=== PATIENT | female | born 1985 | race Caucasian/White ===

== ENCOUNTER → 2017-01-21 | Outpatient (CLI) | payer OTHER ==
[2017-01-21 12:34] LABS: ALT 38 U/L (9-52); AST 27 U/L (14-36); Alkaline Phosphatase 69 U/L (38-126); Anion Gap 10 mmol/L; Blood Urea Nitrogen 14 mg/dL (7-17); C Reactive Protein <5.0 mg/L (<10.0); Calcium 9.3 mg/dL (8.4-10.2); Carbon Dioxide 24 mmol/L (22-30); Chloride 108 mmol/L (98-107); Glucose 73 mg/dL (74-99); Non-African American GFR(MDRD) >60 (>60 ml/min/1.73 sqM); Potassium 4.5 mmol/L (3.5-5.1); Sodium 142 mmol/L (137-145); Total Bilirubin 0.6 mg/dL (0.2-1.3); Total Protein 6.7 g/dL (6.3-8.2)
== END | disposition home or self-care (01) ==
LOC: LABWHC1 11:29
PROVIDERS: ATTEND Family Medicine
DX: E03.9 Hypothyroidism, unspecified (principal); E04.9 Nontoxic goiter, unspecified; R63.8 Other symptoms and signs concerning food and fluid intake
CPT/HCPCS: 36415; 80053; 84439; 84443; 84481; 85652; 86140

== ENCOUNTER 2017-01-30 07:57 | Emergency (ER) | payer OTHER ==
[2017-01-30] MEDS ORDERED: SODIUM CHLORIDE 0.9% 1,000 ML IV STA (08:25)
[2017-01-30 09:17] LABS: Basophils % (A) 0 %; CH 31.8; Eosinophils # (A) 0.3 k/uL (0-0.7); Eosinophils % (A) 4 %; HCT 40.2 % (34.0-46.0); HDW 2.31; HGB 14.2 gm/dL (11.4-16.0); Luc # (Auto) 0.11; Luc % (Auto) 2; Lymphocytes # (A) 1.3 k/uL (1.0-4.8); Lymphocytes % (A) 21 %; MCH 32.2 pg (25.0-35.0); MCHC 35.2 g/dL (31.0-37.0); MCV 91.4 fL (80.0-100.0); Mean Platelet Volume 6.9; Monocytes # (A) 0.3 k/uL (0-1.0); Monocytes % (A) 4 %; Neutrophils # (A) 4.2 k/uL (1.3-7.7); Neutrophils % (A) 68 %; RBC 4.39 m/uL (3.80-5.40); RDW 12.5 % (11.5-15.5); WBC 6.2 k/uL (3.8-10.6); WBC (Perox) 6.02
[2017-01-30 09:24] LABS: Partial Thromboplastin Time 24.6 sec (22.0-30.0); Prothrombin Time 10.2 sec (9.0-12.0)
--- NOTE | 2017-01-30 09:30 | XR ---
EXAMINATION TYPE: XR chest 2V DATE OF EXAM: 01/30/2017 COMPARISON: 02/03/2015 HISTORY: Chest pain TECHNIQUE: Frontal and lateral views of the chest are obtained. FINDINGS: There is no focal air space opacity. No evidence for pneumothorax. No pleural effusion. The cardiac silhouette size is within normal limits. The osseous structures are grossly intact. IMPRESSION: 1. No acute cardiopulmonary process.
--- NOTE | 2017-01-30 09:31 | XR ---
EXAMINATION TYPE: XR soft tissue neck DATE OF EXAM: 01/30/2017 COMPARISON: NONE HISTORY: PT STATES SHE HAS HAD DIFFICULTY BREATHING FOR 2 WEEKS AND LUMP FEELING IN THROAT. TECHNIQUE: 2 views of the soft tissues of the neck are submitted. FINDINGS: The airway is patent. Normal appearing epiglottis. Retropharyngeal soft tissues are withi n normal limits. No evidence for radiopaque foreign body. IMPRESSION: Negative study
[2017-01-30 09:32] LABS: ALT 31 U/L (9-52); AST 29 U/L (14-36); Alkaline Phosphatase 76 U/L (38-126); Anion Gap 7 mmol/L; Blood Urea Nitrogen 14 mg/dL (7-17); Calcium 8.7 mg/dL (8.4-10.2); Carbon Dioxide 23 mmol/L (22-30); Chloride 111 mmol/L (98-107); Glucose 97 mg/dL (74-99); Non-African American GFR(MDRD) >60 (>60 ml/min/1.73 sqM); Sodium 141 mmol/L (137-145); Total Bilirubin 0.4 mg/dL (0.2-1.3); Total Protein 6.5 g/dL (6.3-8.2)
--- NOTE | 2017-01-30 09:45 | ED ---
SOB HPI - General Chief Complaint: Shortness of Breath Stated Complaint: throat pain, diff breathing Time Seen by Provider: 01/30/17 08:09 Source: patient, RN notes reviewed, old records reviewed Mode of arrival: ambulatory Limitations: no limitations - History of Present Illness Initial Comments: 31-year-old female presents emergency Department chief complaint of intermittent throat pain and occasional shortness of breath for the past few months. Patient reports that she saw her primary care provider as she is concerned about making. They did a thyroid test and did an ultrasound. Patient was there was an abnormality on the ultrasound and they were told to follow-up with secondary special education teacher. Patient reports that she cannot see an secondary special education teacher for the next 3 months. Patient states that whenever she seems to lay down or sometimes swallow food there seems to be a compression and pain in her neck and throat. Patient denies any recent fever or chills. She denies any chest pain. She denies any cough or wheezing. She states that he feels as if there is some constriction in her neck. Patient states that she is up-to- date on vaccinations. 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 She states that there is no reason for her and this is unusual for her. - Related Data Home Medications Medication Instructions Recorded Confirmed No Known Home Medications [No 01/30/17 01/30/17 Known Home Medications] Allergies Allergy/AdvReac Type Severity Reaction Status Date / Time No Known Allergies Allergy Verified 01/30/17 08:23 Review of Systems ROS Statement: Those systems with pertinent positive or pertinent negative responses have been documented in the HPI. ROS Other: All systems not noted in ROS Statement are negative. Past Medical History Past Medical History: No Reported History Additional Past Medical History / Comment(s): migraines History of Any Multi-Drug Resistant Organisms: None Reported Past Surgical History: Orthopedic Surgery Additional Past Surgical History / Comment(s): knee surgery and laporoscopy for endometriosis Past Psychological History: No Psychological Hx Reported Smoking Status: Never smoker Past Alcohol Use History: None Reported Past Drug Use History: None Reported General Exam - General Exam Comments Initial Comments: 31-year-old female. No acute distress. Limitations: no limitations General appearance: alert, in no apparent distress Head exam: Present: atraumatic, normocephalic, normal inspection Eye exam: Present: normal appearance, PERRL, EOMI. Absent: scleral icterus, conjunctival injection, periorbital swelling ENT exam: Present: normal exam, normal oropharynx, mucous membranes moist Neck exam: Present: normal inspection, thyromegaly (Possible mild thyromegaly. Patient reports irritation and fullness when swallowing in her throat and neck.) . Absent: tenderness, meningismus, lymphadenopathy Respiratory exam: Present: normal lung sounds bilaterally. Absent: respiratory distress, wheezes, rales, rhonchi, stridor Cardiovascular Exam: Present: regular rate, normal rhythm, normal heart sounds. Absent: systolic murmur, diastolic murmur, rubs, gallop, clicks GI/Abdominal exam: Present: soft, normal bowel sounds. Absent: distended, tenderness, guarding, rebound, rigid Extremities exam: Present: normal inspection, full ROM, normal capillary refill. Absent: tenderness, pedal edema, joint swelling, calf tenderness Back exam: Present: normal inspection Neurological exam: Present: alert, oriented X3, CN II-XII intact Psychiatric exam: Present: normal affect, normal mood Skin exam: Present: warm, dry, intact, normal color. Absent: rash Course Vital Signs 01/30/17 01/30/17 08:04 10:43 Temperature 97.1 F L 97.7 F Pulse Rate 71 66 Respiratory 17 16 Rate Blood Pressure 123/72 120/59 O2 Sat by Pulse 100 100 Oximetry Medical Decision Making - Lab Data Result diagrams: 01/30/17 08:40 01/30/17 08:40 Lab Results 01/30/17 01/30/17 01/30/17 Range/Units 08:40 08:40 08:40 WBC 6.2 (3.8-10.6) k/uL RBC 4.39 (3.80-5.40) m/uL Hgb 14.2 (11.4-16.0) gm/dL Hct 40.2 (34.0-46.0) % MCV 91.4 (80.0-100.0) fL MCH 32.2 (25.0-35.0) pg MCHC 35.2 (31.0-37.0) g/dL RDW 12.5 (11.5-15.5) % Plt Count 262 (150-450) k/uL Neutrophils % 68 % Lymphocytes % 21 % Monocytes % 4 % Eosinophils % 4 % Basophils % 0 % Neutrophils # 4.2 (1.3-7.7) k/uL Lymphocytes # 1.3 (1.0-4.8) k/uL Monocytes # 0.3 (0-1.0) k/uL Eosinophils # 0.3 (0-0.7) k/uL Basophils # 0.0 (0-0.2) k/uL PT 10.2 (9.0-12.0) sec INR 1.0 (<1.1) APTT 24.6 (22.0-30.0) sec Sodium 141 (137-145) mmol/L Potassium 4.0 (3.5-5.1) mmol/L Chloride 111 H (98-107) mmol/L Carbon Dioxide 23 (22-30) mmol/L Anion Gap 7 mmol/L BUN 14 (7-17) mg/dL Creatinine 0.75 (0.52-1.04) mg/dL Est GFR (MDRD) Af Amer >60 (>60 ml/min/1.73 sqM) Est GFR (MDRD) Non-Af >60 (>60 ml/min/1.73 sqM) Glucose 97 (74-99) mg/dL Calcium 8.7 (8.4-10.2) mg/dL Total Bilirubin 0.4 (0.2-1.3) mg/dL AST 29 (14-36) U/L ALT 31 (9-52) U/L Alkaline Phosphatase 76 (38-126) U/L Total Protein 6.5 (6.3-8.2) g/dL Albumin 3.9 (3.5-5.0) g/dL TSH 1.480 (0.465-4.680) mIU/L 01/30/17 13:04 EKG shows normal sinus rhythm. Normal EKG. N 67 bpm. Verbal 146 ms. QRS duration 82 ms. QT QTc is 464 ms. Nonspecific elevation or T-wave inversion. - Radiology Data Radiology results: report reviewed Disposition Clinical Impression: History of dysphagia Disposition: HOME SELF-CARE Condition: Good Instructions: Dysphagia (ED) Additional Instructions: Patient has a follow-up with her primary care provider. Return to emergency department if any alarming signs or symptoms occur. Referrals: Jenifer Rm MD [Primary Care Provider] - 1-2 days Time of Disposition: 10:31
[2017-01-30 10:44] VITALS: BP 120/59; PULSE 66; RESP 16; TEMP 97.7
== END 2017-01-30 10:44 | disposition home or self-care (01) ==
LOC: EC 07:57
DX: R06.02 Shortness of breath (principal); R13.10 Dysphagia, unspecified; R07.0 Pain in throat
CPT/HCPCS: 36415; 70360; 71020; 80053; 84443; 85025; 85610; 85730; 93005; 96360; 99285

== ENCOUNTER → 2017-09-02 | Outpatient (CLI) | payer OTHER ==
[2017-09-02 14:24] LABS: Basophils # (A) 0.1 k/uL (0-0.2); Basophils % (A) 1 %; Eosinophils # (A) 0.2 k/uL (0-0.7); Eosinophils % (A) 3 %; HCT 46.6 % (34.0-46.0); HGB 14.9 gm/dL (11.4-16.0); Lymphocytes # (A) 1.9 k/uL (1.0-4.8); Lymphocytes % (A) 25 %; MCH 30.5 pg (25.0-35.0); MCV 95.2 fL (80.0-100.0); Mean Platelet Volume 6.8; Monocytes # (A) 0.4 k/uL (0-1.0); Monocytes % (A) 5 %; Neutrophils # (A) 4.9 k/uL (1.3-7.7); Neutrophils % (A) 65 %; Platelet Count 303 k/uL (150-450); RDW 12.3 % (11.5-15.5); WBC 7.6 k/uL (3.8-10.6)
[2017-09-02 14:28] LABS: ALT 32 U/L (9-52); AST 35 U/L (14-36); Albumin 4.7 g/dL (3.5-5.0); Alkaline Phosphatase 90 U/L (38-126); Amylase 43 U/L (30-110); Anion Gap 11 mmol/L; Blood Urea Nitrogen 17 mg/dL (7-17); Calcium 9.7 mg/dL (8.4-10.2); Carbon Dioxide 24 mmol/L (22-30); Chloride 106 mmol/L (98-107); Glucose 76 mg/dL (74-99); Lipase 164 U/L (23-300); Potassium 4.6 mmol/L (3.5-5.1); Sodium 141 mmol/L (137-145); Total Bilirubin 0.4 mg/dL (0.2-1.3); Total Protein 7.5 g/dL (6.3-8.2)
--- NOTE | 2017-09-02 14:45 | US ---
EXAMINATION TYPE: US abdomen APPY DATE OF EXAM: 09/02/2017 COMPARISON: NONE CLINICAL HISTORY: R10.9 RUQ pain. RUQ pain for 5 days. Nausea and vomiting for 2 days APPENDIX AP Diameter (normal < 6mm): 0.4 mm Measured outer wall to outer wall. Appendix not seen with certainty Is the appendix compressible: yes Does the appendix wall appear hypervascular: no Is there inflammatory changes or free fluid present: small amount of free fluid RLQ IMPRESSION: No definitive abnormality of the appendix. Strict clinical correlation is advised. Small amount of free fluid noted within the right lower quadrant.
--- NOTE | 2017-09-02 15:15 | US ---
EXAMINATION TYPE: US abdomen complete DATE OF EXAM: 09/02/2017 COMPARISON: 04/07/2013 CLINICAL HISTORY: R10.9 RUQ PAIN. Severe RUQ pain for 5 days. Nausea and vomiting for 2 days. History of kidney stones. Indigestion EXAM MEASUREMENTS: Liver Length: 15.4 cm Gallbladder Wall: 0.3 cm CBD: 0.3 cm Spleen: 9.6 cm Right Kidney: 10.6 x 4.1 x 4.2 cm Left Kidney: 10.5 x 4.8 x 4.4 cm Technical limitations due to large amount of overlying bowel content Pancreas: Obscured by bowel gas Liver: appears wnl Gallbladder: no evidence of stones Evidence for sonographic Ehrnandez's sign: no CBD: appears wnl Spleen: isoechoic area adjacent to = 1.4 x 1.3 x 1.4cm, probable accessory spleen Right Kidney: no evidence of hydronephrosis or mass as visualized Left Kidney: no evidence of hydronephrosis or mass as visualized Upper IVC: wnl Abd Aorta: visualized portions appear wnl The liver is homogenous. The intrahepatic portion of the IVC and proximal abdominal aorta are within normal limits. There is no evidence of cholelithiasis. Common bile duct is unremarkable. The visu alized portions of the pancreas are homogenous. The spleen is unremarkable. Kidneys are symmetric a nd free of hydronephrosis. No renal lesions are seen. IMPRESSION: 1. Nonspecific gallbladder wall thickening. Otherwise unremarkable study.
== END | disposition home or self-care (01) ==
LOC: RADUSWWP 12:32
PROVIDERS: ATTEND Family Medicine
DX: K82.8 Other specified diseases of gallbladder (principal)
CPT/HCPCS: 36415; 76700; 76705; 80053; 82150; 83690; 85025

== ENCOUNTER 2018-01-19 | Emergency (ER) | payer OTHER | END 2018-01-19 21:04 | disposition left against medical advice (07) | DX: N93.9 Abnormal uterine and vaginal bleeding, unspecified (principal); Z53.21 Procedure and treatment not carried out due to patient leaving prior to being seen by health care provider ==

== ENCOUNTER 2018-04-16 09:43 | Emergency (ER) | payer OTHER ==
[2018-04-16 09:59] VITALS: RESP 18
[2018-04-16] MEDS ORDERED: diphenhydrAMINE 50 MG/ML 1 ML VIAL IVP STA (10:27)
[2018-04-16] MEDS ORDERED: METOCLOPRAMIDE 5 MG/ML 2 ML VIAL IVP STA (10:27)
[2018-04-16] MEDS ORDERED: SODIUM CHLORIDE 0.9% 1,000 ML IV STA ×2 (10:27)
--- NOTE | 2018-04-16 11:01 | ED ---
Nausea/Vomiting/Diarrhea HPI - General Chief complaint: Nausea/Vomiting/Diarrhea Stated complaint: 17 weeks NVMD Time Seen by Provider: 04/16/18 09:54 Source: patient, RN notes reviewed, old records reviewed Mode of arrival: ambulatory Limitations: no limitations - History of Present Illness Initial comments: 33-year-old female is currently 17 weeks presents emergency department today with 3 days of nausea vomiting and diarrhea. Patient was sent in by her INSPECTOR OF [employer]S AND MEASURES for further evaluation. Patient states that she has no significant abdominal pain. She denies any vaginal discharge or vaginal bleeding. This is patient's second . Her INSPECTOR OF [employer] ME[employer] is Dr. Stapleton. Patient states that she she may have a viral illness. She's had no medication help with diarrhea or nausea or vomiting today that she has . Patient denies any fevers or chills. - Related Data Home Medications Medication Instructions Recorded Confirmed Aspirin 162 mg PO DAILY 04/16/18 04/16/18 Vcz-Mwca-Wmedn Acid 1 cap PO DAILY 04/16/18 04/16/18 [-U Capsule (formulary)] Previous Rx's Medication Instructions Recorded Pyridoxine [Vitamin B-6] 50 mg PO BID #20 tablet 04/16/18 Allergies Allergy/AdvReac Type Severity Reaction Status Date / Time No Known Allergies Allergy Verified 01/19/18 18:58 Review of Systems ROS Statement: Those systems with pertinent positive or pertinent negative responses have been documented in the HPI. ROS Other: All systems not noted in ROS Statement are negative. Past Medical History Past Medical History: No Reported History Additional Past Medical History / Comment(s): migraines History of Any Multi-Drug Resistant Organisms: None Reported Past Surgical History: Orthopedic Surgery Additional Past Surgical History / Comment(s): knee surgery and laporoscopy for endometriosis Past Psychological History: No Psychological Hx Reported Smoking Status: Never smoker Past Alcohol Use History: Occasional Past Drug Use History: None Reported General Exam - General Exam Comments Initial Comments: 33-year-old female. Alert and oriented. No significant distress. Limitations: no limitations General appearance: alert, in no apparent distress Head exam: Present: atraumatic, normocephalic, normal inspection Eye exam: Present: normal appearance, PERRL, EOMI. Absent: scleral icterus, conjunctival injection, periorbital swelling ENT exam: Present: normal exam, mucous membranes moist Neck exam: Present: normal inspection. Absent: tenderness, meningismus, lymphadenopathy Respiratory exam: Present: normal lung sounds bilaterally. Absent: respiratory distress, wheezes, rales, rhonchi, stridor Cardiovascular Exam: Present: regular rate, normal rhythm, normal heart sounds. Absent: systolic murmur, diastolic murmur, rubs, gallop, clicks GI/Abdominal exam: Present: soft, normal bowel sounds. Absent: distended, tenderness, guarding, rebound, rigid Extremities exam: Present: normal inspection, full ROM, normal capillary refill. Absent: tenderness, pedal edema, joint swelling, calf tenderness Back exam: Present: normal inspection Neurological exam: Present: alert, oriented X3, CN II-XII intact Psychiatric exam: Present: normal affect, normal mood Skin exam: Present: warm, dry, intact, normal color. Absent: rash Course Vital Signs 04/16/18 09:53 Temperature 98.0 F Pulse Rate 99 Respiratory 18 Rate Blood Pressure 121/60 O2 Sat by Pulse 99 Oximetry Medical Decision Making - Medical Decision Making 33-year-old female with this currently 17 weeks presents emergency Department with nausea vomiting and episodes of diarrhea for the past 3 days. Patient has had no fevers or chills or any other complaints. She was told by her INSPECTOR OF [employer] MEASURES to come here. She states she hasabdominal pain or tenderness. She denies any vaginal bleeding or discharge. heart tones were 1 40 bpm. She appears in no acute distress. Urinalysis and blood work was otherwise unremarkable. Patient was given Reglan Benadryl does feel better at this time. We'll discharge the Patient with vitamin B6. Discussed close follow-up with [employer] and primary care physician. She states she would like referral her close her [employer] and she lives in [facility] and she will is traveling to [facility]. Patient given information for further [employer] offices and discussed return parameters. Patient is history plan will comply. Return parameters were discussed. - Lab Data Result diagrams: 04/16/18 11:31 04/16/18 11:31 Lab Results 04/16/18 04/16/18 04/16/18 Range/Units 11:31 11:31 11:31 WBC 8.5 (3.8-10.6) k/uL RBC 4.19 (3.80-5.40) m/uL Hgb 13.0 (11.4-16.0) gm/dL Hct 38.8 (34.0-46.0) % MCV 92.7 (80.0-100.0) fL MCH 31.0 (25.0-35.0) pg MCHC 33.5 (31.0-37.0) g/dL RDW 12.6 (11.5-15.5) % Plt Count 239 (150-450) k/uL Neutrophils % 78 % Lymphocytes % 14 % Monocytes % 5 % Eosinophils % 2 % Basophils % 0 % Neutrophils # 6.6 (1.3-7.7) k/uL Lymphocytes # 1.2 (1.0-4.8) k/uL Monocytes # 0.4 (0-1.0) k/uL Eosinophils # 0.1 (0-0.7) k/uL Basophils # 0.0 (0-0.2) k/uL Sodium 137 (137-145) mmol/L Potassium 3.8 (3.5-5.1) mmol/L Chloride 112 H (98-107) mmol/L Carbon Dioxide 18 L (22-30) mmol/L Anion Gap 7 mmol/L BUN 9 (7-17) mg/dL Creatinine 0.46 L (0.52-1.04) mg/dL Est GFR (CKD-EPI)AfAm >90 (>60 ml/min/1.73 sqM) Est GFR (CKD-EPI)NonAf >90 (>60 ml/min/1.73 sqM) Glucose 80 (74-99) mg/dL Calcium 8.7 (8.4-10.2) mg/dL Total Bilirubin 0.2 (0.2-1.3) mg/dL AST 28 (14-36) U/L ALT 34 (9-52) U/L Alkaline Phosphatase 58 (38-126) U/L Total Protein 5.8 L (6.3-8.2) g/dL Albumin 3.1 L (3.5-5.0) g/dL Amylase 58 (30-110) U/L Lipase 211 (23-300) U/L Urine Color Yellow Urine Appearance Cloudy H (Clear) Urine pH 6.5 (5.0-8.0) Ur Specific [place] 1.020 (1.001-1.035) Urine Protein Negative (Negative) Urine Glucose (UA) Negative (Negative) Urine Ketones Negative (Negative) Urine Blood Negative (Negative) Urine Nitrite Negative (Negative) Urine Bilirubin Negative (Negative) Urine Urobilinogen <2.0 (<2.0) mg/dL Ur Leukocyte Esterase Negative (Negative) Urine RBC <1 (0-5) /hpf Ur Squamous Epith Cells <1 (0-4) /hpf Amorphous Sediment Rare H (None) /hpf Urine Bacteria Rare H (None) /hpf Urine Mucus Occasional H (None) /hpf - Radiology Data Radiology results: report reviewed Heart tones were 1 40 bpm. No evidence of deceleration. Disposition Clinical Impression: Nausea & vomiting, Diarrhea, 17 weeks gestation of Disposition: HOME SELF-CARE Condition: Good Instructions: Acute Nausea and Vomiting (ED) Additional Instructions: Patient advised to rest, remain hydrated. Return to the emergency department if any alarming signs or symptoms occur. Prescriptions: Pyridoxine [Vitamin B-6] 50 mg PO BID #20 tablet Is patient prescribed a controlled substance at d/c from ED?: No Referrals: Jenifer Rm MD [Primary Care Provider] - 1-2 days Tamela Dumont MD [STAFF PHYSICIAN] - 1-2 days Time of Disposition: 12:28
[2018-04-16 12:08] LABS: Amorphous Sediment,Urine Rare /hpf; Appearance,Urine Cloudy (Clear); Bacteria,Urine Rare /hpf; Basophils % (A) 0 %; Bilirubin,Urine Negative (Negative); Blood,Urine Negative (Negative); Color,Urine Yellow; Eosinophils # (A) 0.1 k/uL (0-0.7); Eosinophils % (A) 2 %; Glucose,Urine (UA) Negative (Negative); HCT 38.8 % (34.0-46.0); Ketones,Urine Negative (Negative); Leukocyte Esterase,Urine Negative (Negative); Lymphocytes # (A) 1.2 k/uL (1.0-4.8); Lymphocytes % (A) 14 %; MCHC 33.5 g/dL (31.0-37.0); MCV 92.7 fL (80.0-100.0); Monocytes # (A) 0.4 k/uL (0-1.0); Monocytes % (A) 5 %; Mucus,Urine Occasional /hpf; Neutrophils # (A) 6.6 k/uL (1.3-7.7); Neutrophils % (A) 78 %; Nitrite,Urine Negative (Negative); PH, Urine 6.5 (5.0-8.0); Platelet Count 239 k/uL (150-450); Protein,Urine Negative (Negative); RBC 4.19 m/uL (3.80-5.40); RBC,Urine <1 /hpf (0-5); RDW 12.6 % (11.5-15.5); Squamous Epithelial Cell,Urine <1 /hpf (0-4); Urobilinogen,Urine <2.0 mg/dL (<2.0); WBC 8.5 k/uL (3.8-10.6)
[2018-04-16 12:19] LABS: ALT 34 U/L (9-52); AST 28 U/L (14-36); Albumin 3.1 g/dL (3.5-5.0); Alkaline Phosphatase 58 U/L (38-126); Amylase 58 U/L (30-110); Anion Gap 7 mmol/L; Blood Urea Nitrogen 9 mg/dL (7-17); Calcium 8.7 mg/dL (8.4-10.2); Carbon Dioxide 18 mmol/L (22-30); Chloride 112 mmol/L (98-107); Glucose 80 mg/dL (74-99); Lipase 211 U/L (23-300); Potassium 3.8 mmol/L (3.5-5.1); Sodium 137 mmol/L (137-145); Total Bilirubin 0.2 mg/dL (0.2-1.3); Total Protein 5.8 g/dL (6.3-8.2)
[2018-04-16 12:48] VITALS: BP 125/68; PULSE 61; TEMP 98.3
== END 2018-04-16 12:47 | disposition home or self-care (01) ==
LOC: EC 09:43
DX: O21.9 Vomiting of pregnancy, unspecified (principal); O99.89 Other specified diseases and conditions complicating pregnancy, childbirth and the puerperium; R19.7 Diarrhea, unspecified; Z79.82 Long term (current) use of aspirin; Z3A.17 17 weeks gestation of pregnancy
CPT/HCPCS: 36415; 80053; 81001; 82150; 83690; 85025; 96361; 96374; 96375; 99284

== ENCOUNTER 2018-06-16 23:00 | Outpatient (CLI) | payer OTHER ==
[2018-06-16 23:45] LABS: Appearance,Urine Cloudy (Clear); Bilirubin,Urine Negative (Negative); Blood,Urine Negative (Negative); Color,Urine Light Yellow; Glucose,Urine (UA) Negative (Negative); Ketones,Urine Negative (Negative); Leukocyte Esterase,Urine Negative (Negative); Mucus,Urine Rare /hpf; Nitrite,Urine Negative (Negative); PH, Urine 6.5 (5.0-8.0); Protein,Urine Negative (Negative); RBC,Urine <1 /hpf (0-5); Specific Gravity,Urine 1.014 (1.001-1.035); Squamous Epithelial Cell,Urine 1 /hpf (0-4); Urobilinogen,Urine <2.0 mg/dL (<2.0); WBC,Urine 4 /hpf (0-5)
[2018-06-16 23:47] VITALS: TEMP 97.2
[2018-06-17 00:57] VITALS: BP 108/67; PULSE 101; RESP 16
--- NOTE | 2018-07-01 12:32 | P.MSEPDOC ---
Presenting Problems - Arrival Data Date of Arrival on Unit: 06/16/18 Time of Arrival on Unit: 23:00 Mode of Transport: Wheelchair - Complaint OB-Reason for Admission/Chief Complaint: Headache, Visual Disturbances, Elevated Blood Pressure Comment: history of preeclampsia previous , symptoms and elevated pressures at home now Medical History - Information : 2 Para: 1 Term: 0 : 1 Abortions: Spontaneous or Elective: 0 Number of Living Children: 1 - Gestational Age Gestational Age by RUSS (wks/days): 27 Weeks and 1 Days - History Complications: Prior Review of Systems - Review of Systems Constitutional: No problems Breast: No problems ENT: Cough, Nasal congestion Cardiovascular: No problems Respiratory: No problems Gastrointestinal: No problems Genitourinary: No problems Musculoskeletal: No problems Neurological: No problems Skin: No problems Vital Signs - Temperature Temperature: 97.2 F Temperature Source: Temporal Artery Scan - Pulse Right Sitting Brachial Pulse Rate: 101 Pulse Assessment Method: Automatic Cuff - Respirations Respiratory Rate: 16 Oxygen Delivery Method: Room Air - Blood Pressure Right Arm Sitting Blood Pressure: 108/67 Blood Pressure Mean: 80 Blood Pressure Source: Automatic Cuff Medical Screen Scoring (Pre) - Cervical Exam Dilation: Exam Deferred Effacement: Exam Deferred Membranes: Intact - Uterine Contractions Frequency: > or = 36 weeks =2 - Maternal Vital Signs Maternal Temperature: N/A Maternal Blood Pressure: N/A - Pain Assessment Pain Location and Character: Head Pain Scale Used: Numeric (1 - 10) Pain Intensity: 8 Pain Description: *Acute, Aching Pain Frequency: Constant Pain Duration: 1 Pain Duration Units: Days Pain Behavior: None Exhibited Pain Aggravating Factors: None Non-Pharmacological Interventions: Darkened Room - Assessment Baseline FHR: 130 Heart Rate - NICHD Category: Category I (Normal) = 0 Position: N/A Station: N/A - Total Score Total Score (Pre): 2 - Level of Risk Level of Risk: Low (0-5) Medical Screen Scoring (Post) - Cervical Exam Dilation: Exam Deferred Effacement: Exam Deferred Membranes: Intact - Uterine Contractions Frequency: N/A Duration: N/A Intensity: N/A - Maternal Vital Signs Maternal Temperature: N/A Maternal Blood Pressure: N/A Maternal Respirations: N/A - Total Score Total Score (Post): 0 - Post Treatment Level of Risk Post Treatment Level of Risk: Low (0-5) Physician Notification (Post) - Physician Notified Physician Notified Date: 06/17/18 Physician Notified Time: 00:10 Spoke With: Torres New Order Received: Yes (d/c with instruction) - Notification Comment Comment: Orders discharge to home with instructions. to call her doctor first thing in am for appt. tomorrow and bring cuff for calibration. If symptoms. return and pressure high, go to [facility] for care [facility] Disposition - Disposition OB Disposition: Discharge to home, Written follow up instructions reviewed Discharge Date: 06/17/18 Discharge Time: 00:18 I agree with the RN Medical Screening Exam: Yes Risk & Benefit of care provided described in d/c instruction: Yes Diagnosis: RELATED CONDITIONS, UNSPECIFIED, SECOND TRIMESTER
== END 2018-06-17 00:18 | disposition home or self-care (01) ==
LOC: FBPOP 23:00
PROVIDERS: ATTEND Obstetrics & Gynecology
DX: O26.92 Pregnancy related conditions, unspecified, second trimester (principal); Z3A.27 27 weeks gestation of pregnancy
CPT/HCPCS: 81001; G0463; 99213

== ENCOUNTER 2019-07-16 08:25 | Emergency (ER) | payer OTHER ==
[2019-07-16 08:39] VITALS: BP 104/68; PULSE 75; RESP 18; TEMP 97.8
--- NOTE | 2019-07-16 09:06 | ED ---
Recheck HPI - General Chief Complaint: Recheck/Abnormal Lab/Rx Stated Complaint: post pardom depression problems Time Seen by Provider: 07/16/19 08:44 Source: patient, RN notes reviewed Mode of arrival: ambulatory Limitations: no limitations - History of Present Illness Initial Comments: 34-year-old female presents emergency Department chief complaint of medication refill. Patient has underlying depression. She states she was doing well though she states that she had a work injury and lost her work insurance. Patient states that she is scheduled to get insurance back in July. Patient states she was doing well when she was taking Zoloft 50 mg. Patient states she is is crying all the time states that she no she has posterior compression states that she is not suicidal or homicidal. She states that she is able take care of her to get with no difficulties. Patient states that she had a missed work because of being tearful. - Related Data Home Medications Medication Instructions Recorded Confirmed Aspirin 162 mg PO DAILY 06/16/18 06/16/18 Previous Rx's Medication Instructions Recorded Sertraline [Zoloft] 50 mg PO DAILY #30 tab 07/16/19 Allergies Allergy/AdvReac Type Severity Reaction Status Date / Time No Known Allergies Allergy Verified 06/16/18 23:15 Review of Systems ROS Statement: Those systems with pertinent positive or pertinent negative responses have been documented in the HPI. ROS Other: All systems not noted in ROS Statement are negative. Past Medical History Past Medical History: No Reported History Additional Past Medical History / Comment(s): migraines History of Any Multi-Drug Resistant Organisms: None Reported Past Surgical History: Orthopedic Surgery Additional Past Surgical History / Comment(s): knee surgery and laporoscopy for endometriosis Past Psychological History: Anxiety, Depression Smoking Status: Never smoker Past Alcohol Use History: None Reported Past Drug Use History: None Reported General Exam Limitations: no limitations General appearance: alert, in no apparent distress Head exam: Present: atraumatic, normocephalic, normal inspection Eye exam: Present: normal appearance, PERRL, EOMI. Absent: scleral icterus, conjunctival injection, periorbital swelling ENT exam: Present: normal exam, normal oropharynx, mucous membranes moist, TM's normal bilaterally Neck exam: Present: normal inspection, full ROM. Absent: tenderness, meningismus, lymphadenopathy Respiratory exam: Present: normal lung sounds bilaterally. Absent: respiratory distress, wheezes, rales, rhonchi, stridor Cardiovascular Exam: Present: regular rate, normal rhythm, normal heart sounds. Absent: systolic murmur, diastolic murmur, rubs, gallop, clicks Neurological exam: Present: alert, oriented X3, CN II-XII intact, reflexes normal. Absent: motor sensory deficit Psychiatric exam: Present: depressed Skin exam: Present: warm, dry, intact, normal color. Absent: rash Course Vital Signs 07/16/19 08:34 Temperature 97.8 F Pulse Rate 75 Respiratory 18 Rate Blood Pressure 104/68 O2 Sat by Pulse 99 Oximetry Medical Decision Making - Medical Decision Making patient is not suicidal or homicidal. Patient does have depression will be restarted on her Zoloft. She is instructed follow-up including counseling return for any worsening symptoms. Disposition Clinical Impression: Post depression Disposition: HOME SELF-CARE Condition: Stable Instructions (If sedation given, give patient instructions): Depression (DC) Additional Instructions: Please return to the Emergency Department if symptoms worsen or any other concerns. Prescriptions: Sertraline [Zoloft] 50 mg PO DAILY #30 tab Is patient prescribed a controlled substance at d/c from ED?: No Referrals: Jenifer Rm MD [Primary Care Provider] - 1-2 days Time of Disposition: 09:06
== END 2019-07-16 09:09 | disposition home or self-care (01) ==
LOC: EC 08:25
DX: F53.0 Postpartum depression (principal); Z79.82 Long term (current) use of aspirin; Z86.69 Personal history of other diseases of the nervous system and sense organs
CPT/HCPCS: 99283

== ENCOUNTER → 2020-04-07 | Outpatient (CLI) | payer OTHER ==
[2020-04-07 08:45] LABS: HCT 43.6 % (34.0-46.0); HGB 14.3 gm/dL (11.4-16.0); MCH 30.4 pg (25.0-35.0); MCHC 32.7 g/dL (31.0-37.0); Mean Platelet Volume 7.1; Platelet Count 280 k/uL (150-450); RBC 4.68 m/uL (3.80-5.40); RDW 12.1 % (11.5-15.5); WBC 5.3 k/uL (3.8-10.6)
[2020-04-07 08:46] LABS: Appearance,Urine Clear (Clear); Bilirubin,Urine Negative (Negative); Blood,Urine Negative (Negative); Color,Urine Light Yellow; Glucose,Urine (UA) Negative (Negative); Ketones,Urine Negative (Negative); Leukocyte Esterase,Urine Negative (Negative); Nitrite,Urine Negative (Negative); Protein,Urine Negative (Negative); Specific Gravity,Urine 1.009 (1.001-1.035); Urobilinogen,Urine <2.0 mg/dL (<2.0)
[2020-04-07 08:55] LABS: Partial Thromboplastin Time 24.1 sec (22.0-30.0)
[2020-04-07 09:03] LABS: African American GFR (CKD) >90 (>60 ml/min/1.73 sqM); Anion Gap 7 mmol/L; Blood Urea Nitrogen 13 mg/dL (7-17); Calcium 9.1 mg/dL (8.4-10.2); Carbon Dioxide 26 mmol/L (22-30); Chloride 105 mmol/L (98-107); Glucose 91 mg/dL (74-99); Non-African American GFR(CKD) >90 (>60 ml/min/1.73 sqM); Sodium 138 mmol/L (137-145)
[2020-04-07 09:17] LABS: HCG,Quantitative Serum <2.4 mIU/mL
--- NOTE | 2020-04-07 09:18 | XR ---
EXAMINATION TYPE: XR chest 2V DATE OF EXAM: 04/07/2020 COMPARISON: Prior chest 01/30/2017 HISTORY: Z01.818 TECHNIQUE: Frontal and lateral views of the chest are obtained. FINDINGS: There is no focal air space opacity, pleural effusion, or pneumothorax seen. The cardiac silhouette size is within normal limits. The osseous structures are intact. IMPRESSION: No acute cardiopulmonary process.
== END | disposition home or self-care (01) ==
LOC: LABPAT 08:15
PROVIDERS: ATTEND Orthopaedic Surgery Orthopaedic Surgery of the Spine
DX: Z01.818 Encounter for other preprocedural examination (principal); M50.222 Other cervical disc displacement at C5-C6 level
CPT/HCPCS: 36415; 71046; 80048; 81003; 84702; 85027; 85610; 85730

== ENCOUNTER 2020-04-19 09:53 | Observation (INO) | payer OTHER ==
[2020-04-18 08:42] VITALS: BMI 28.8
[~2020-04-19 09:53] MED LIST: DEXAMETHASONE SOD PHOSPHATE 10 MG/ML 1 ML VIAL IV ONE; MIDAZOLAM 2 MG/2 ML VIAL IV PRN; SCOPOLAMINE 1.5MG/72HR PATCH TRANSDERM ONE; ceFAZolin 1,000 MG in SODIUM CHLORIDE 0.9% IRRIGATIO 1,000 ML IRRIGATION ONE; fentaNYL (PF) 50 MCG/ML 2 ML AMP IV PRN; fentaNYL (PF) 50 MCG/ML 2 ML AMP IVP PRN
[2020-04-19] MEDS ORDERED: LIDOCAINE 1% (10MG/ML) FOR IV START INTRADERMA ONE (10:53)
[2020-04-19] MEDS: LACTATED RINGERS 1,000 ML IV SCH ×2 (10:54→22:42)
[2020-04-19] MEDS: ONDANSETRON 4 MG/2 ML VIAL IVP ONE ×2 (10:58→10:59)
[2020-04-19] MEDS ORDERED: MIDAZOLAM 2 MG/2 ML VIAL IVP ONE (11:06)
[2020-04-19] MEDS ORDERED: SUCCINYLCHOLINE CHLORIDE 100 MG/5 ML SYR IV ONE (13:54)
[2020-04-19] MEDS ORDERED: ROCURONIUM BROMIDE 10 MG/ML 5 ML VIAL IV ONE (13:54)
[2020-04-19] MEDS ORDERED: LIDOCAINE 1% INJ 10MG/ML (20 ML MDV) ONE (13:54)
[2020-04-19] MEDS ORDERED: MIDAZOLAM 2 MG/2 ML VIAL ONE (13:54)
[2020-04-19] MEDS ORDERED: KETAMINE 10 MG/ML 20 ML VIAL ONE (13:54)
[2020-04-19] MEDS ORDERED: PROPOFOL 10 MG/ML 20 ML VIAL IV ONE (13:54)
[2020-04-19] MEDS ORDERED: PHENYLEPHRINE-0.9% NACL SYG 1 MG/10 ML SYRINGE ONE (13:54)
[2020-04-19] MEDS ORDERED: fentaNYL (PF) 50 MCG/ML 2 ML AMP ONE (13:54)
[2020-04-19] MEDS ORDERED: LIDOCAINE 2%-EPI 1:100,000 20 ML VIAL SQ ONE (14:31)
[2020-04-19] MEDS ORDERED: GELATIN SPONGE,ABSORB (LARGE) 1 EACH SPONGE TOPICAL ONE (14:31)
[2020-04-19] MEDS ORDERED: BUPIVACAINE (PF) 0.25% 30 ML VIAL SQ ONE (14:31)
[2020-04-19] MEDS ORDERED: THROMBIN (BOVINE) 5,000 UNIT VIAL TOPICAL ONE (14:31)
--- NOTE | 2020-04-19 15:03 | XR ---
EXAMINATION TYPE: XR cervical spine 1V DATE OF EXAM: 04/19/2020 COMPARISON: NONE HISTORY: NEEDLE PLACEMENT TECHNIQUE: Crosstable lateral view cervical spine FINDINGS: Anterior localizer at C6-7 disc space. IMPRESSION: As above
[2020-04-19] MEDS ORDERED: LACTATED RINGERS 1,000 ML IV ONE (15:28)
[2020-04-19] MEDS ORDERED: HYDROmorphone 1 MG/ML 1 ML SYRINGE IVP PRN (15:53)
[2020-04-19] MEDS ORDERED: HYDROcodone/APAP 5-325MG 1 EACH TAB PO PRN ×2 (15:53→15:56)
[2020-04-19] MEDS ORDERED: BENZOCAINE/MENTHOL LOZENG 1 EACH LOZENGE MUCOUS MEM PRN (15:53)
[2020-04-19] MEDS ORDERED: ACETAMINOPHEN TAB 325 MG TAB PO PRN (15:53)
[2020-04-19] MEDS ORDERED: ONDANSETRON 4 MG/2 ML VIAL IVP PRN (15:53)
--- NOTE | 2020-04-19 16:05 | P.OP ---
Date of Procedure: 04/19/20 Preoperative Diagnosis: Herniated nucleus pulposis C5 6 C6 7, bilateral upper extremity radiculopathy, upper extremity weakness, neck pain Postoperative Diagnosis: Same Anesthesia: GETA Pathology: none sent Condition: stable Disposition: PACU Description of Procedure: BRIEF OPERATIVE NOTE Preoperative Diagnosis:Herniated nucleus pulposis C5 6 C6 7, bilateral upper extremity radiculopathy, upper extremity weakness, neck pain Postoperative Diagnosis:Herniated nucleus pulposis C5 6 C6 7, bilateral upper extremity radiculopathy, upper extremity weakness, neck pain Procedure: Anterior cervical decompression with discectomy and fusion C5 6 C6 7 Placement of interbody graft C5 6 C6 7 Application of anterior cervical plate C5 6 and 7 Surgeon: Dr. Nunez Spout Tender: Joe GILLIAM who is present throughout the entire the case persistence during positioning, dissection, exposure, visualization, and all crucial elements of the case as well as closure. Anesthesia: General anesthesia Estimated blood loss: Approximately 50 mL Complications: None apparent Components implanted: K2M [place] anterior cervical plate system with 6 screws measuring 14 mm in length and Vikos interbody under bone graft and 1 mL of DBX bone putty Disposition: To recovery room in good stable condition. OPERATIVE INDICATIONS The patient has had severe issues in their neck and upper extremities. She was having significant radicular symptoms at her bilateral upper extremities and her symptoms correlated well with imaging findings that showed a large disc herniation at C5 6 and C6 7. The patient has been through conservative treatment. She is not having any prolonged benefit despite aggressive conservative treatment. We discussed various treatment options including surgery, and the patient wishes to proceed with surgery We discussed the risk, patient's alternatives and benefits of surgery including but not limited to, risk of bleeding risk of infection, risk of need for further surgery, risk of decreased, loss of motion, muscle function, malunion nonunion, hardware failure, nerve damage, paralysis, heart attack, and . OPERATIVE SUMMARY After discussing all the risks, patient alternatives and benefits at length, the patient elected to proceed with surgical intervention, signed informed consent, and presented for their procedure. The patient was seen and examined in the preoperative holding area and the surgical site was marked. The patient was given antibiotics and brought to the operating room. The patient was positioned on the operating room table in a supine position being careful to pad any bony prominences and pressure points. The patient was sedated and intubated by anesthesia in standard fashion. Once the airway and C- spine were stabilized the patient's arms were padded and tucked at her side, with her shoulders gently taped. The head was placed in a donut pad with the neck in good neutral alignment and position. We were careful to maintain the patient's cervical spine and good neutral alignment and position throughout. The patient was prepped and draped in a normal standard fashion. An appropriate timeout and keystone protocol performed. We were able to proceed with the surgery. The local wound area was infiltrated with local anesthetic. An incision was made transversely approximately 2-1/2 cm over the appropriate levels at C6 on the right. Dissection was taken down subcutaneously to the level of the platysma which was split in line with its fibers. Dissection was taken with a carotid approach, with the trachea and esophagus medial and the carotid sheath laterally. We dissected down to the anterior surface of the vertebral bodies. Intraoperative x-ray was taken which showed a marker at the appropriate level of C6 7. With the appropriate level positively confirmed, we were able to proceed with discectomy at the appropriate levels. All of the operative levels were exposed appropriately. The patient had all their twitches back, and there was no evidence of recurrent laryngeal issue. The wound was copiously irrigated and suctioned dry as had been done periodically throughout the case. At the appropriate level/levels, starting at C6 7 and then moving C5 6 I established an annulotomy with an 11 blade scalpel. A discectomy was performed with a combination of pituitary rongeurs, curettes, a high-speed bur, and Kerrison rongeurs. The posterior longitudinal ligament was taken down as were any posterior osteophytes. Note was made of significant disc herniation at each of the levels. I was able to remove the herniated disc and extruded fragments as well. This gave good central and bilateral foraminal decompression. There is no evidence of any dural tear or leak. The endplates were prepared with a high-speed bur. With the endplates in good parallel position, I was able to size for the appropriate size interbody graft. The wound was irrigated and suctioned dry the graft was prepared and malleted into position. It had good alignment and position with the anterior surface flush with the anterior surface of the vertebral bodies. This was done similarly the appropriate levels first at C6 7 than at C5 6. With the grafts intact, I was able to measure and contour and appropriate sized plate. The plate was positioned at the midline over the appropriate levels at C5 6 and 7. Screw holes were established with a hand drill and drill guide. Screws were placed in good alignment and position with excellent bony purchase. They were seated under the locking device. The construct was checked and found to be stable. Intraoperative x-ray was taken which showed good alignment and position of the implants at the appropriate levels. There was no evidence of any dural tear or leak. Good hemostasis was maintained. The wound was copiously irrigated and suctioned dry as had been done periodically throughout the case. The platysma was closed with absorbable suture. The subcutaneous tissue was closed. The subcuticular tissue was closed with absorbable suture. The wound was cleaned and dried and dressed appropriately. A soft cervical collar was placed appropriately. The patient was woken up by anesthesia, extubated, transferred back gently to their hospital bed and brought to the recovery room in good stable condition. The patient will be admitted to the hospital for appropriate postoperative care, medical management and monitoring. We will continue to follow them closely about the postoperative course.
[2020-04-19] MEDS ORDERED: diphenhydrAMINE 50 MG/ML 1 ML VIAL IVP ONE (16:07)
[2020-04-19] MEDS: HYDROmorphone 0.5 MG/0.5 ML SYRINGE IVP PRN ×3 (16:12→20:47)
--- NOTE | 2020-04-19 21:53 | XR ---
EXAMINATION TYPE: XR cervical spine 1V DATE OF EXAM: 04/19/2020 COMPARISON: Earlier exam HISTORY: Anterior fusion TECHNIQUE: Lateral cervical spine FINDINGS: Anterior cervical fusion is present C5-C7. Disc spaces are utilized. IMPRESSION: 1. Status post anterior cervical fusion C5-C7.
[2020-04-19] MEDS: SODIUM CHLORIDE 0.9% 1,000 ML IV SCH (23:33)
[2020-04-20] MEDS: HYDROmorphone 0.5 MG/0.5 ML SYRINGE IVP PRN (06:30)
[2020-04-20 07:31] VITALS: BP 103/66; PULSE 95; RESP 18; TEMP 98.1
--- NOTE | 2020-04-20 08:31 | P.DS ---
Providers Date of admission: 04/19/20 23:00 Attending physician: Afia Nunez Primary care physician: Jenifer Patel [facility] Course: The patient presented on the day of admission as per their operative note. She feels her arms are doing well today she has some soreness around her throat with as expected. She is not having any new neurologic problems. Physical Exam The incision site is clean dry and intact. There is no erythema no drainage. There is no purulence no evidence of infection.Her neck is soft and supple. There is no drainage. Abdomen soft and nontender. Chest has good excursion with deep inspiration and expiration. The patient has active and passive range of motion intact at the upper and lower extremities. There is no acute change in neurologic status. She has good motion in her arms. Hospital Course Postoperative day #1 status post anterior cervical decompression with discectomy and fusion C5 6 C6 7 for her herniated nucleus pulposis and upper extremity radiculopathy. The patient is doing very well postoperatively. The patient has been making good progress postoperatively. They have completed the prophylactic antibiotics without any signs or symptoms of infection. The patient has been able to advance their diet, and is tolerating diet adequately. The pain was initially controlled with IV medications and is now controlled appropriately with oral medications. The patient has been able to increase their mobilization. The patient has progressed appropriately. I think they are in good stable condition for discharge today. They will be sent home with appropriate prescriptions. I answered their questions to the best of my ability in a language that they can understand and they are agreeable with the plan. They will follow up as directed in approximately 2 weeks or sooner if she is having problems. Patient Condition at Discharge: Good Plan - Discharge Summary Discharge Rx Participant: Yes New Discharge Prescriptions: New HYDROcodone/APAP 5-325MG [[place] 5] 1 each PO Q6HR PRN #28 tab PRN Reason: Pain No Action HYDROcodone/APAP 5-325MG [[place] 5-325] 1 tab PO Q8HR PRN PRN Reason: Pain hydrOXYzine pamoate [Vistaril] 25 mg PO HS PRN PRN Reason: Insomnia FLUoxetine HCL [PROzac] 20 mg PO DAILY Discharge Medication List HYDROcodone/APAP 5-325MG [[place] 5-325] 1 tab PO Q8HR PRN 04/18/20 [History] hydrOXYzine pamoate [Vistaril] 25 mg PO HS PRN 04/18/20 [History] FLUoxetine HCL [PROzac] 20 mg PO DAILY 04/19/20 [History] HYDROcodone/APAP 5-325MG [[place] 5] 1 each PO Q6HR PRN #28 tab 04/19/20 [Rx] Follow up Appointment(s)/Referral(s): Afia Nunez DO [Doctor of Osteopathic Medicine] - 2 Weeks Activity/Diet/Wound Care/Special Instructions: Keep site clean. May shower with waterproof Tegaderm intact. Do not soak in a tub. After 72 hours postoperatively, patient May remove dressing and then may shower with area uncovered. Leave Steri-Strips intact and allow them to fray off on their own. May ambulate as tolerated. Avoid heavy or rigorous activity. No repetitive bending twisting or lifting. No overhead work.
[2020-04-20] MEDS: SODIUM CHLORIDE 0.9% 1,000 ML IV SCH (08:46)
[2020-04-20] MEDS ORDERED: FLUoxetine HCL 20 MG CAP PO SCH (09:00)
[2020-04-20] MEDS ORDERED: SENNOSIDES-DOCUSATE SODIUM 1 EACH TAB PO SCH ×2 (09:00)
== END 2020-04-20 10:04 | disposition home or self-care (01) ==
LOC: OR 09:53 → 4SSUR 15:59 → OR 23:24
PROVIDERS: ADMIT Orthopaedic Surgery Orthopaedic Surgery of the Spine; ATTEND Orthopaedic Surgery Orthopaedic Surgery of the Spine
DX: M50.122 Cervical disc disorder at C5-C6 level with radiculopathy (principal); M50.022 Cervical disc disorder at C5-C6 level with myelopathy; M48.02 Spinal stenosis, cervical region; M43.12 Spondylolisthesis, cervical region; Z79.1 Long term (current) use of non-steroidal anti-inflammatories (NSAID); Z79.891 Long term (current) use of opiate analgesic; Z79.899 Other long term (current) drug therapy; Z98.890 Other specified postprocedural states; Z97.3 Presence of spectacles and contact lenses; Z83.3 Family history of diabetes mellitus; Z82.49 Family history of ischemic heart disease and other diseases of the circulatory system
CPT/HCPCS: 22551; 22552; 20930; 81025; 86900; 86901; 86850; 72020; G0378 ×2; C1713 ×2; C1762; J2250; J1200; J0690 ×3; J2405; J2001; J3010; J2370; J0330; J2704; J1170 ×2

== ENCOUNTER 2020-09-04 09:01 | Emergency (ER) | payer OTHER ==
[2020-09-04 09:08] VITALS: RESP 18; TEMP 98.9
[2020-09-04] MEDS ORDERED: SODIUM CHLORIDE 0.9% 1,000 ML IV STA (09:30)
--- NOTE | 2020-09-04 09:33 | ED ---
General Adult HPI - General Chief complaint: ENT Stated complaint: Dysphagia Time Seen by Provider: 09/04/20 09:18 Source: patient, RN notes reviewed Mode of arrival: ambulatory Limitations: no limitations - History of Present Illness Initial comments: patient is a pleasant 35-year-old female presenting to the emergency department with concerns regarding her neck. Patient did have cervical fusion done in March. Patient has history of previous thyroid problems.Patient states the last couple of days she has had some difficulty swallowing her secretions when laying flat on her back. Patient did have an episode yesterday with difficulty swallowing a yoruba marquez. Patient also states she has gotten lightheaded when bending forward a couple of times. Patient has never lost consciousness or Fully passed out.No dyspnea. No chest pain. - Related Data Home Medications Medication Instructions Recorded Confirmed Ibuprofen [Motrin Ib] 400 mg PO Q8H PRN 09/04/20 09/04/20 Allergies Allergy/AdvReac Type Severity Reaction Status Date / Time No Known Allergies Allergy Verified 09/04/20 10:45 Review of Systems ROS Statement: Those systems with pertinent positive or pertinent negative responses have been documented in the HPI. ROS Other: All systems not noted in ROS Statement are negative. Constitutional: Denies: fever Eyes: Denies: eye pain ENT: Reports: as per HPI. Denies: ear pain Respiratory: Denies: cough Cardiovascular: Denies: chest pain Endocrine: Denies: fatigue Gastrointestinal: Denies: abdominal pain Genitourinary: Denies: dysuria Musculoskeletal: Denies: back pain Skin: Denies: rash Neurological: Denies: weakness Past Medical History Past Medical History: No Reported History Additional Past Medical History / Comment(s): migraines, thyroid goiter History of Any Multi-Drug Resistant Organisms: None Reported Past Surgical History: Orthopedic Surgery Additional Past Surgical History / Comment(s): knee surgery and laporoscopy for endometriosis, neck fusion Past Anesthesia/Blood Transfusion Reactions: No Reported Reaction, Family History of Problems w/ Anesthesia, Motion Sickness Additional Past Anesthesia/Blood Transfusion Reaction / Comment(s): mother=ponv Past Psychological History: Anxiety, Depression Smoking Status: Never smoker Past Alcohol Use History: None Reported Past Drug Use History: None Reported - Past Family History Mother Family Medical History: No Reported History General Exam Limitations: no limitations General appearance: alert, in no apparent distress Head exam: Present: normocephalic Eye exam: Present: normal appearance ENT exam: Present: normal exam, normal oropharynx Neck exam: Present: normal inspection. Absent: tenderness Respiratory exam: Present: normal lung sounds bilaterally Cardiovascular Exam: Present: regular rate, normal rhythm GI/Abdominal exam: Present: soft. Absent: tenderness Extremities exam: Present: normal inspection Neurological exam: Present: alert, CN II-XII intact Psychiatric exam: Present: normal affect, normal mood Skin exam: Present: normal color Course Vital Signs 09/04/20 09:04 Temperature 98.9 F Pulse Rate 98 Respiratory 18 Rate Blood Pressure 111/75 O2 Sat by Pulse 100 Oximetry Medical Decision Making - Medical Decision Making Patient reevaluated and resting comfortably in bed. Patient symptom free at this time. Patient updated on need for follow-up and need to return if symptoms worsen, difficulty breathing or not tolerating fluids. - Lab Data Result diagrams: 09/04/20 10:15 09/04/20 10:15 Lab Results 09/04/20 09/04/20 09/04/20 Range/Units 10:15 10:15 10:15 WBC 5.1 (3.8-10.6) k/uL RBC 4.42 (3.80-5.40) m/uL Hgb 14.0 (11.4-16.0) gm/dL Hct 40.4 (34.0-46.0) % MCV 91.5 (80.0-100.0) fL MCH 31.6 (25.0-35.0) pg MCHC 34.6 (31.0-37.0) g/dL RDW 11.8 (11.5-15.5) % Plt Count 266 (150-450) k/uL MPV 7.1 Neutrophils % 61 % Lymphocytes % 28 % Monocytes % 5 % Eosinophils % 3 % Basophils % 0 % Neutrophils # 3.1 (1.3-7.7) k/uL Lymphocytes # 1.4 (1.0-4.8) k/uL Monocytes # 0.3 (0-1.0) k/uL Eosinophils # 0.2 (0-0.7) k/uL Basophils # 0.0 (0-0.2) k/uL PT 10.0 (9.0-12.0) sec INR 0.9 (<1.2) APTT 24.5 (22.0-30.0) sec Sodium 135 L (137-145) mmol/L Potassium 4.5 (3.5-5.1) mmol/L Chloride 105 (98-107) mmol/L Carbon Dioxide 22 (22-30) mmol/L Anion Gap 8 mmol/L BUN 18 H (7-17) mg/dL Creatinine 0.78 (0.52-1.04) mg/dL Est GFR (CKD-EPI)AfAm >90 (>60 ml/min/1.73 sqM) Est GFR (CKD-EPI)NonAf >90 (>60 ml/min/1.73 sqM) Glucose 92 (74-99) mg/dL Plasma Lactic Acid El (0.7-2.0) mmol/L Calcium 9.1 (8.4-10.2) mg/dL Total Bilirubin 0.5 (0.2-1.3) mg/dL AST 28 (14-36) U/L ALT 19 (4-34) U/L Alkaline Phosphatase 65 (38-126) U/L Total Protein 6.7 (6.3-8.2) g/dL Albumin 4.0 (3.5-5.0) g/dL TSH 1.570 (0.465-4.680) mIU/L Free T4 0.97 (0.78-2.19) ng/dL Free T3 pg/mL 3.5 (2.8-5.3) pg/ml 09/04/20 Range/Units 10:15 WBC (3.8-10.6) k/uL RBC (3.80-5.40) m/uL Hgb (11.4-16.0) gm/dL Hct (34.0-46.0) % MCV (80.0-100.0) fL MCH (25.0-35.0) pg MCHC (31.0-37.0) g/dL RDW (11.5-15.5) % Plt Count (150-450) k/uL MPV Neutrophils % % Lymphocytes % % Monocytes % % Eosinophils % % Basophils % % Neutrophils # (1.3-7.7) k/uL Lymphocytes # (1.0-4.8) k/uL Monocytes # (0-1.0) k/uL Eosinophils # (0-0.7) k/uL Basophils # (0-0.2) k/uL PT (9.0-12.0) sec INR (<1.2) APTT (22.0-30.0) sec Sodium (137-145) mmol/L Potassium (3.5-5.1) mmol/L Chloride (98-107) mmol/L Carbon Dioxide (22-30) mmol/L Anion Gap mmol/L BUN (7-17) mg/dL Creatinine (0.52-1.04) mg/dL Est GFR (CKD-EPI)AfAm (>60 ml/min/1.73 sqM) Est GFR (CKD-EPI)NonAf (>60 ml/min/1.73 sqM) Glucose (74-99) mg/dL Plasma Lactic Acid El 0.6 L (0.7-2.0) mmol/L Calcium (8.4-10.2) mg/dL Total Bilirubin (0.2-1.3) mg/dL AST (14-36) U/L ALT (4-34) U/L Alkaline Phosphatase (38-126) U/L Total Protein (6.3-8.2) g/dL Albumin (3.5-5.0) g/dL TSH (0.465-4.680) mIU/L Free T4 (0.78-2.19) ng/dL Free T3 pg/mL (2.8-5.3) pg/ml - Radiology Data Radiology results: report reviewed (Computed tomography scan of the neck shows no distinctive normality.), image reviewed (Chest x-ray reveals no acute process.) Disposition Clinical Impression: Dysphagia Disposition: HOME SELF-CARE Condition: Stable Instructions (If sedation given, give patient instructions): Dysphagia (ED) Additional Instructions: Please follow-up with primary care physician in the next day or 2 for recheck, also follow-up with ENT, number provided. Consider scope. You may also need to follow-up with gastroenterology, number has also been provided. Is patient prescribed a controlled substance at d/c from ED?: No Referrals: Jenifer Rm MD [Primary Care Provider] - 1-2 days Luke Smith DO [Doctor of Osteopathic Medicine] - 1-2 days Rhys Lopez MD [STAFF PHYSICIAN] - 1-2 days Time of Disposition: 11:05
--- NOTE | 2020-09-04 09:54 | XR ---
EXAMINATION TYPE: XR chest 2V DATE OF EXAM: 09/04/2020 COMPARISON: 04/07/2020 HISTORY: 35-year-old female syncope, difficulty breathing TECHNIQUE: PA and lateral views FINDINGS: The cardiomediastinal silhouette, aorta, and pulmonary vasculature are within normal limits. Lungs an d pleural spaces are clear. ACDF hardware. IMPRESSION: No acute cardiopulmonary process.
--- NOTE | 2020-09-04 10:12 | CT ---
EXAMINATION TYPE: CT soft tissue neck w con DATE OF EXAM: 09/04/2020 COMPARISON: None HISTORY: dysphagia CT DLP: 306.2 mGycm CONTRAST: CT scan of the neck is performed with IV Contrast, patient injected with 100 mL of Isovue 300. Contrast enhanced CT of the neck was performed from the skull base through the lung apices. AIRWAY: The supraglottic, glottic, and subglottic portions of the airway appear patent and free of mass. SALIVARY GLANDS: The submandibular and parotid glands are free of mass or inflammatory process. THYROID GLAND: Tiny thyroid cyst is noted within the left thyroid lobe measuring approximately 6 mm. LYMPH NODES: No adenopathy seen greater than 1cm. LUNG APICES: No nodule or mass is seen. OTHER: Vascular structures are patent. Postoperative changes of the cervical fusion extending from C 5 through C7. Anterior fixation plate. No abscess seen. IMPRESSION: No distinct abnormality to account for the patient's symptoms of dysphagia. Cervical fixation plate f rom ACDF noted.
[2020-09-04 10:21] LABS: Basophils % (A) 0 %; Eosinophils # (A) 0.2 k/uL (0-0.7); Eosinophils % (A) 3 %; HCT 40.4 % (34.0-46.0); Lymphocytes # (A) 1.4 k/uL (1.0-4.8); Lymphocytes % (A) 28 %; MCH 31.6 pg (25.0-35.0); MCHC 34.6 g/dL (31.0-37.0); MCV 91.5 fL (80.0-100.0); Mean Platelet Volume 7.1; Monocytes # (A) 0.3 k/uL (0-1.0); Monocytes % (A) 5 %; Neutrophils # (A) 3.1 k/uL (1.3-7.7); Neutrophils % (A) 61 %; Platelet Count 266 k/uL (150-450); RBC 4.42 m/uL (3.80-5.40); RDW 11.8 % (11.5-15.5); WBC 5.1 k/uL (3.8-10.6)
[2020-09-04 10:29] LABS: ALT 19 U/L (4-34); AST 28 U/L (14-36); African American GFR (CKD) >90 (>60 ml/min/1.73 sqM); Alkaline Phosphatase 65 U/L (38-126); Anion Gap 8 mmol/L; Blood Urea Nitrogen 18 mg/dL (7-17); Calcium 9.1 mg/dL (8.4-10.2); Carbon Dioxide 22 mmol/L (22-30); Chloride 105 mmol/L (98-107); Glucose 92 mg/dL (74-99); Non-African American GFR(CKD) >90 (>60 ml/min/1.73 sqM); Potassium 4.5 mmol/L (3.5-5.1); Sodium 135 mmol/L (137-145); Total Bilirubin 0.5 mg/dL (0.2-1.3); Total Protein 6.7 g/dL (6.3-8.2)
[2020-09-04 10:30] LABS: INR 0.9 (<1.2); Partial Thromboplastin Time 24.5 sec (22.0-30.0)
[2020-09-04 10:45] LABS: T4, Free (Free Thyroxine) 0.97 ng/dL (0.78-2.19)
[2020-09-04 11:28] VITALS: BP 108/71; PULSE 90
== END 2020-09-04 11:25 | disposition home or self-care (01) ==
LOC: EC 09:01
DX: R13.10 Dysphagia, unspecified (principal)
CPT/HCPCS: 36415; 84439; 84481; 80053; 83605; 84443; 85025; 85610; 85730; 71046; 70491; 99284; 96360; Q9967

== ENCOUNTER 2020-09-12 10:28 | Emergency (ER) | payer OTHER ==
[2020-09-12 10:37] VITALS: BP 119/77; PULSE 92; RESP 18; TEMP 98.4
[2020-09-12] MEDS ORDERED: MAG HYDROX/AL HYDROX/SIMETH 30 ML, HYOSCYAMINE ELIXIR 10 ML, LIDOCAINE VISCOUS 2% 10 ML PO STA ×3 (10:55)
--- NOTE | 2020-09-12 10:55 | ED ---
General Adult HPI - General Chief complaint: Chest Pain Stated complaint: Chest pain/egd yesterday/nausea/sent by Elio Time Seen by Provider: 09/12/20 10:43 Source: patient Mode of arrival: ambulatory Limitations: no limitations - History of Present Illness Initial comments: Dictation was produced using [employer] dictation software. please excuse any grammatical, word or spelling errors. This patient was cared for during a federal and state declared state of emergency secondary to Covid 19 Chief Complaint: 35-year-old female presents with chest pain after EGD History of Present Illness: 35-year-old female she has past medical history of dysphagia. 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 Barriga. Patient had a EGD performed at [facility]. She was told that she had biopsies and balloon dilatation. After the procedure that night she began having severe chest pain. She states that her pain did not improve with water. She initially noted its severity after eating spaghetti yesterday. Since that her pain was severe she called the GI doctor today and was told to come to the e mergency department. The ROS documented in this emergency department record has been reviewed and confirmed by me. Those systems with pertinent positive or negative responses have been documented in the HPI. All other systems are other negative and/or noncontributory. PHYSICAL EXAM: General Impression: Alert and oriented x3, not in acute distress HEENT: Normocephalic atraumatic, extra-ocular movements intact, pupils equal and reactive to light bilaterally, mucous membranes moist. Cardiovascular: Heart regular rate and rhythm Chest: Able to complete full sentences, no retractions, no tachypnea Abdomen: abdomen soft, non-tender, non-distended, no organomegaly Musculoskeletal: Pulses present and equal in all extremities, no peripheral edema Motor: no focal deficits noted Neurological: CN II-XII grossly intact, no focal motor or sensory deficits noted Skin: Intact with no visualized rashes Psych: Normal affect and mood ED course: 35-year-old female presents with chest pain after EGD. Vital signs upon arrival are within acceptable limits. EKG is unremarkable. Is discussed in detail with Dr. Barriga who performed EGD yesterday she requests that a CT of the chest ordered to evaluate for possible perforation.Chest x-ray does not show any evidence of perforation. Laboratory evaluation is unremarkable. CT shows no acute processes however there is incidental finding of very minimal reticular infiltrate in the periphery of the right upper lobe. Patient was notified of results and told to follow-up with her primary care physician regarding this. Case is rediscussed with Dr. Barriga who recommends increasing her proton pump inhibitor to twice a day and to start Carafate and to follow up with outpatient office. Patient is agreeable with disposition plan. Patient will be discharged. EKG interpretation: Ventricular rate 85, normal sinus rhythm, MD interval 146, QRS 74, QTc 440. No MD prolongation, no QTC prolongation, no ST or T-wave changes noted. Overall, this EKG is unremarkable - Related Data Previous Rx's Medication Instructions Recorded Esomeprazole Magnesium 40 mg PO BID 12 Days #24 capsule. 09/12/20 Sucralfate [Carafate] 1 gm PO BID 12 Days #24 ml 09/12/20 Allergies Allergy/AdvReac Type Severity Reaction Status Date / Time No Known Allergies Allergy Verified 09/12/20 12:02 Review of Systems ROS Statement: Those systems with pertinent positive or pertinent negative responses have been documented in the HPI. ROS Other: All systems not noted in ROS Statement are negative. Past Medical History Past Medical History: No Reported History Additional Past Medical History / Comment(s): migraines, thyroid goiter History of Any Multi-Drug Resistant Organisms: None Reported Past Surgical History: Orthopedic Surgery Additional Past Surgical History / Comment(s): knee surgery and laporoscopy for endometriosis, neck fusion Past Anesthesia/Blood Transfusion Reactions: No Reported Reaction, Family History of Problems w/ Anesthesia, Motion Sickness Additional Past Anesthesia/Blood Transfusion Reaction / Comment(s): mother=ponv Past Psychological History: Anxiety, Depression Smoking Status: Never smoker Past Alcohol Use History: None Reported Past Drug Use History: None Reported - Past Family History Mother Family Medical History: No Reported History General Exam Limitations: no limitations Course Vital Signs 09/12/20 10:34 Temperature 98.4 F Pulse Rate 92 Respiratory 18 Rate Blood Pressure 119/77 O2 Sat by Pulse 100 Oximetry Medical Decision Making - Lab Data Result diagrams: 09/12/20 11:01 09/12/20 11:01 Lab Results 09/12/20 09/12/20 Range/Units 11:01 11:01 WBC 5.2 (3.8-10.6) k/uL RBC 4.90 (3.80-5.40) m/uL Hgb 15.2 (11.4-16.0) gm/dL Hct 45.5 (34.0-46.0) % MCV 92.8 (80.0-100.0) fL MCH 31.0 (25.0-35.0) pg MCHC 33.4 (31.0-37.0) g/dL RDW 12.0 (11.5-15.5) % Plt Count 278 (150-450) k/uL MPV 7.2 Neutrophils % 58 % Lymphocytes % 31 % Monocytes % 6 % Eosinophils % 2 % Basophils % 1 % Neutrophils # 3.0 (1.3-7.7) k/uL Lymphocytes # 1.6 (1.0-4.8) k/uL Monocytes # 0.3 (0-1.0) k/uL Eosinophils # 0.1 (0-0.7) k/uL Basophils # 0.0 (0-0.2) k/uL Sodium 139 (137-145) mmol/L Potassium 4.1 (3.5-5.1) mmol/L Chloride 106 (98-107) mmol/L Carbon Dioxide 23 (22-30) mmol/L Anion Gap 10 mmol/L BUN 12 (7-17) mg/dL Creatinine 0.70 (0.52-1.04) mg/dL Est GFR (CKD-EPI)AfAm >90 (>60 ml/min/1.73 sqM) Est GFR (CKD-EPI)NonAf >90 (>60 ml/min/1.73 sqM) Glucose 90 (74-99) mg/dL Calcium 9.7 (8.4-10.2) mg/dL Total Bilirubin 0.6 (0.2-1.3) mg/dL AST 24 (14-36) U/L ALT 20 (4-34) U/L Alkaline Phosphatase 69 (38-126) U/L Total Protein 7.6 (6.3-8.2) g/dL Albumin 4.7 (3.5-5.0) g/dL Lipase 161 (23-300) U/L Disposition Clinical Impression: Chest pain Disposition: HOME SELF-CARE Condition: Good Instructions (If sedation given, give patient instructions): Chest Pain (ED) Additional Instructions: There was incidental finding on your CT of infectious versus inflammatory proce ss in the right upper lung [place]. He is follow-up with primary care physician regarding this. Seek medical attention if you have worsening respiratory infection symptoms including runny nose, cough, fever or sore throat. Prescriptions: Sucralfate [Carafate] 1 gm PO BID 12 Days #24 ml Esomeprazole Magnesium 40 mg PO BID 12 Days #24 capsule.dr Is patient prescribed a controlled substance at d/c from ED?: No Referrals: Toshia Barriga MD [STAFF PHYSICIAN] - 1-2 days Time of Disposition: 13:43
[2020-09-12 11:26] LABS: Basophils % (A) 1 %; Eosinophils # (A) 0.1 k/uL (0-0.7); Eosinophils % (A) 2 %; HCT 45.5 % (34.0-46.0); HGB 15.2 gm/dL (11.4-16.0); Lymphocytes # (A) 1.6 k/uL (1.0-4.8); Lymphocytes % (A) 31 %; MCHC 33.4 g/dL (31.0-37.0); MCV 92.8 fL (80.0-100.0); Mean Platelet Volume 7.2; Monocytes # (A) 0.3 k/uL (0-1.0); Monocytes % (A) 6 %; Neutrophils % (A) 58 %; Platelet Count 278 k/uL (150-450); WBC 5.2 k/uL (3.8-10.6)
--- NOTE | 2020-09-12 11:41 | XR ---
EXAMINATION TYPE: XR chest 2V DATE OF EXAM: 09/12/2020 COMPARISON: 09/04/2020 HISTORY: 35-year-old female with chest pain TECHNIQUE: PA and lateral views FINDINGS: The cardiomediastinal silhouette, aorta, and pulmonary vasculature are within normal limits. Lungs an d pleural spaces are clear. ACDF hardware. IMPRESSION: No acute cardiopulmonary process.
[2020-09-12 11:44] LABS: ALT 20 U/L (4-34); AST 24 U/L (14-36); African American GFR (CKD) >90 (>60 ml/min/1.73 sqM); Albumin 4.7 g/dL (3.5-5.0); Alkaline Phosphatase 69 U/L (38-126); Anion Gap 10 mmol/L; Blood Urea Nitrogen 12 mg/dL (7-17); Calcium 9.7 mg/dL (8.4-10.2); Carbon Dioxide 23 mmol/L (22-30); Chloride 106 mmol/L (98-107); Glucose 90 mg/dL (74-99); Lipase 161 U/L (23-300); Non-African American GFR(CKD) >90 (>60 ml/min/1.73 sqM); Potassium 4.1 mmol/L (3.5-5.1); Sodium 139 mmol/L (137-145); Total Bilirubin 0.6 mg/dL (0.2-1.3); Total Protein 7.6 g/dL (6.3-8.2)
[2020-09-12] MEDS ORDERED: RX INFO: IV CONTRAST WAS GIVEN 1 EACH MISC MISCELLANE PRN (12:02)
--- NOTE | 2020-09-12 13:02 | CT ---
EXAMINATION TYPE: CT chest w con DATE OF EXAM: 09/12/2020 COMPARISON: Radiograph same day HISTORY: 35-year-old female chest pain after EGD TECHNIQUE: Contiguous axial scanning of the chest after the administration of 100 mL of Isovue 300. Coronal/sagittal reconstructions performed. CT DLP: 331.7mGycm. Automatic exposure control utilized for a dose reduction. FINDINGS: The heart is normal size without pericardial effusion. Aorta normal caliber with bovine configuration to the aortic arch. No thoracic lymphadenopathy by CT size criteria. Minimal reticular infiltrate in the periphery of the right upper lobe, axial image 13. Otherwise, no consolidation or pleural effusion. Visualized upper abdomen shows hilar and inferior splenules. Bones: Partially visualized ACDF hardware. Mild degenerative disc disease mid thoracic spine with flower e anterior vacuum phenomenon. IMPRESSION: Minimal reticular infiltrate in the periphery of the right upper lobe, axial image 13. Findings sugge st a nonspecific small infectious/inflammatory focus. Otherwise, no acute pulmonary process.
== END 2020-09-12 13:57 | disposition home or self-care (01) ==
LOC: EC 10:28
DX: R07.9 Chest pain, unspecified (principal); R91.8 Other nonspecific abnormal finding of lung field
CPT/HCPCS: 36415; 71046; 71260; 80053; 83690; 85025; 93005; 99285

== ENCOUNTER 2020-12-22 09:01 | Observation (INO) | payer OTHER ==
[2020-12-22] MEDS ORDERED: NITROGLYCERIN SL TABS 0.4 MG TAB SUBLINGUAL STA (09:17)
[2020-12-22] MEDS ORDERED: ASPIRIN 81 MG PO STA (09:17)
--- NOTE | 2020-12-22 09:31 | ED ---
Chest Pain HPI - General Chief Complaint: Chest Pain Stated Complaint: Chest Pain,SOB Time Seen by Provider: 12/22/20 09:07 Source: patient, RN notes reviewed Mode of arrival: wheelchair Limitations: no limitations - History of Present Illness Initial Comments: This is a 35-year-old female with no prior history of heart or lung disease and no family history of heart disease in her age group who presents with complaints of intermittent episodes of shortness of breath and chest pain over the past 2 weeks. He states she is a squeezing type pain 78/10 severity currently is that severity it does seem to get worse with exertion or movement. She also had palpitations dizziness this morning no nausea vomiting no other symptoms he does state however that she has some left arm numbness and heaviness associated with these symptoms. No fevers chills no cough no phlegm production last menstrual period was approximately a week ago MD Complaint: chest pain - Related Data Previous Rx's Medication Instructions Recorded Esomeprazole Magnesium 40 mg PO BID 12 Days #24 capsule. 09/12/20 Allergies Allergy/AdvReac Type Severity Reaction Status Date / Time No Known Allergies Allergy Verified 12/22/20 10:50 Review of Systems ROS Statement: Those systems with pertinent positive or pertinent negative responses have been documented in the HPI. ROS Other: All systems not noted in ROS Statement are negative. EKG Findings - EKG Results: EKG: interpreted by POLLY, sinus rhythm (Normal sinus rhythm with sinus arr hythmia rate 66 SC interval 114 QRS 76 QT since QTC 390/417) Past Medical History Past Medical History: Thyroid Disorder Additional Past Medical History / Comment(s): migraines, thyroid goiter, palpitations History of Any Multi-Drug Resistant Organisms: None Reported Past Surgical History: Orthopedic Surgery Additional Past Surgical History / Comment(s): knee surgery and laporoscopy for endometriosis, neck fusion Past Anesthesia/Blood Transfusion Reactions: No Reported Reaction, Family History of Problems w/ Anesthesia, Motion Sickness Additional Past Anesthesia/Blood Transfusion Reaction / Comment(s): mother=ponv Past Psychological History: Anxiety, Depression Smoking Status: Never smoker Past Alcohol Use History: Rare Past Drug Use History: None Reported - Past Family History Mother Family Medical History: No Reported History General Exam - General Exam Comments Initial Comments: This is a well-developed well-nourished awake alert oriented 3 female Limitations: no limitations General appearance: alert, anxious Head exam: Present: atraumatic, normocephalic, normal inspection Eye exam: Present: normal appearance, PERRL, EOMI. Absent: scleral icterus, conjunctival injection, periorbital swelling ENT exam: Present: normal exam, mucous membranes moist Neck exam: Present: normal inspection, full ROM, other (No surgery or bruits). Absent: tenderness, meningismus, lymphadenopathy Respiratory exam: Present: normal lung sounds bilaterally, chest wall tenderness (Tenderness palpation of the right costochondral margin this does not reproduce the pain the patient states). Absent: respiratory distress, wheezes, rales, rhonchi, stridor Cardiovascular Exam: Present: regular rate, normal rhythm, normal heart sounds. Absent: systolic murmur, diastolic murmur, rubs, gallop, clicks GI/Abdominal exam: Present: soft, normal bowel sounds. Absent: distended, tenderness, guarding, rebound, rigid Extremities exam: Present: normal inspection, full ROM, normal capillary refill. Absent: tenderness, pedal edema, joint swelling, calf tenderness Back exam: Present: normal inspection Neurological exam: Present: alert, oriented X3, CN II-XII intact Psychiatric exam: Present: normal affect, normal mood Skin exam: Present: warm, dry, intact, normal color. Absent: rash Course Vital Signs 12/22/20 12/22/20 12/22/20 09:03 09:50 11:49 Temperature 98.2 F Pulse Rate 70 68 76 Respiratory 18 18 16 Rate Blood Pressure 121/69 115/71 94/59 O2 Sat by Pulse 100 100 99 Oximetry Chest Pain MDM - MDM Imaging reviewed no acute findings. Patient does have no relief in her pain thus far. I did discuss the findings with her also with Dr. Resendez patient will be admitted Disposition Clinical Impression: Atypical chest pain Disposition: ADMITTED IP TO THIS [facility] Condition: Stable Referrals: Jenifer Rm MD [Primary Care Provider] - 1-2 days
[2020-12-22] MEDS ORDERED: SODIUM CHLORIDE 0.9% 500 ML 500 ML IV STA (09:50)
[2020-12-22 09:58] LABS: Basophils % (A) 1 %; Eosinophils # (A) 0.2 k/uL (0-0.7); Eosinophils % (A) 4 %; HCT 42.4 % (34.0-46.0); HGB 14.5 gm/dL (11.4-16.0); Lymphocytes # (A) 1.3 k/uL (1.0-4.8); Lymphocytes % (A) 23 %; MCH 30.9 pg (25.0-35.0); MCHC 34.3 g/dL (31.0-37.0); MCV 90.2 fL (80.0-100.0); Mean Platelet Volume 7.5; Monocytes # (A) 0.2 k/uL (0-1.0); Monocytes % (A) 4 %; Neutrophils # (A) 3.9 k/uL (1.3-7.7); Neutrophils % (A) 68 %; Platelet Count 272 k/uL (150-450); RBC 4.69 m/uL (3.80-5.40); RDW 12.2 % (11.5-15.5); WBC 5.7 k/uL (3.8-10.6)
[2020-12-22 10:15] LABS: ALT 20 U/L (4-34); African American GFR (CKD) >90 (>60 ml/min/1.73 sqM); Albumin 4.5 g/dL (3.5-5.0); Anion Gap 9 mmol/L; Blood Urea Nitrogen 13 mg/dL (7-17); Calcium 9.1 mg/dL (8.4-10.2); Carbon Dioxide 22 mmol/L (22-30); Chloride 108 mmol/L (98-107); Creatine Kinase 269 U/L (30-135); Glucose 98 mg/dL (74-99); Lipase 173 U/L (23-300); Non-African American GFR(CKD) >90 (>60 ml/min/1.73 sqM); Sodium 139 mmol/L (137-145); Total Bilirubin 0.5 mg/dL (0.2-1.3); Total Protein 7.1 g/dL (6.3-8.2)
--- NOTE | 2020-12-22 10:15 | XR ---
EXAMINATION TYPE: XR chest 2V DATE OF EXAM: 12/22/2020 COMPARISON: 09/12/2020 HISTORY: Chest pain TECHNIQUE: Frontal and lateral views of the chest are obtained. FINDINGS: Overlying leads. Heart size is within normal limits. No pleural effusion, focal consolidat ion or pneumothorax. Cervical spine fusion hardware is partially visualized. Osseous structures are u nremarkable. IMPRESSION: 1. No acute pulmonary disease.
[2020-12-22 10:16] LABS: AST 34 U/L (14-36); Alkaline Phosphatase 78 U/L (38-126); Magnesium 1.9 mg/dL (1.6-2.3); Potassium 4.9 mmol/L (3.5-5.1)
[2020-12-22 10:25] LABS: D-Dimer <0.17 mg/L FEU (<0.60); INR 0.9 (<1.2); Partial Thromboplastin Time 23.2 sec (22.0-30.0); Prothrombin Time 9.9 sec (9.0-12.0)
[2020-12-22] MEDS ORDERED: KETOROLAC 15 MG/ML 1 ML VIAL IVP STA (11:42)
[2020-12-22] MEDS ORDERED: KETOROLAC 15 MG/ML 1 ML VIAL ONE (11:43)
[2020-12-22] MEDS ORDERED: NITROGLYCERIN SL TABS 0.4 MG TAB SUBLINGUAL PRN (13:16)
[2020-12-22] MEDS ORDERED: SODIUM CHLORIDE 0.9% 1,000 ML IV SCH (13:30)
--- NOTE | 2020-12-22 15:58 | P.HPIM ---
History of Present Illness H&P Date: 12/22/20 This is a 35-year-old female with no significant past medical history that presented to the emergency room with chest pain. Patient said that for the past week she has been having problems with palpitation associated with shortness of breath and squeezing feeling in her chest. Patient said that her symptoms are not necessarily related to activities but occasionally get them when she is active at work. Patient denies any known cardiac history. She does not have hypertension, diabetes, or hyperlipidemia. Patient denies having any emotional or financial stress. She has some problems with anxiety in the past but this is completely different. Last night she had an episode of severe chest discomfort that she called her friend and told her that she may be having a heart attack. This morning she had another episode so she decided to come to the emergency room for further evaluation. Review of Systems Review of system: 14 points review of systems were obtained and were negative except to what were mentioned in the HPI. Past Medical History Past Medical History: Thyroid Disorder Additional Past Medical History / Comment(s): migraines, thyroid goiter, palpitations History of Any Multi-Drug Resistant Organisms: None Reported Past Surgical History: Orthopedic Surgery Additional Past Surgical History / Comment(s): knee surgery and laporoscopy for endometriosis, neck fusion Past Anesthesia/Blood Transfusion Reactions: No Reported Reaction, Family History of Problems w/ Anesthesia, Motion Sickness Additional Past Anesthesia/Blood Transfusion Reaction / Comment(s): mother=ponv Past Psychological History: Anxiety, Depression Smoking Status: Never smoker Past Alcohol Use History: Rare Past Drug Use History: None Reported - Past Family History Mother Family Medical History: No Reported History Medications and Allergies Home Medications Medication Instructions Recorded Confirmed Type Esomeprazole Magnesium 40 mg PO BID 12 Days #24 capsule. 09/12/20 12/22/20 Rx Allergies Allergy/AdvReac Type Severity Reaction Status Date / Time No Known Allergies Allergy Verified 12/22/20 10:50 Physical Exam Vitals: Vital Signs Temp Pulse Resp BP Pulse Ox 12/22/20 15:46 76 16 108/76 99 12/22/20 14:00 97.8 F 67 18 107/58 98 12/22/20 11:49 76 16 94/59 99 12/22/20 09:50 68 18 115/71 100 12/22/20 09:03 98.2 F 70 18 121/69 100 Intake and Output 12/22/20 12/22/20 12/22/20 06:59 14:59 22:59 Other: Weight 77.111 kg General: The patient is awake and alert, in no distress Eye: there is normal conjunctiva bilaterally. Neck: The neck is supple, there is no JVD. Cardiovascular: Normal S1-S2, no S3-S4, no murmurs. Respiratory: Lungs clear to auscultation bilaterally Gastrointestinal: Abdomen is soft, nontender Musculoskeletal: There is no pedal edema. Neurological:. Speech is normal. Skin: Skin is warm and dry Results CBC & Chem 7: 12/22/20 09:46 12/22/20 09:46 Labs: Abnormal Lab Results - Last 24 Hours (Table) 12/22/20 Range/Units 09:46 Chloride 108 H (98-107) mmol/L Creatine Kinase 269 H (30-135) U/L Assessment and Plan Assessment: 1. Chest pain, mostly atypical in nature. Twelve-lead EKG showed no acute ischemic changes. Initial troponin is negative. D-dimer is normal. Patient denies any strong family history for coronary artery disease. She states on observation awaiting cardiology evaluation. Today, I reviewed her medication list and lab work results. I told the patient that she may be able to be discharged home and follow-up with cardiology in the office that she elected to stay as she was uncomfortable with her symptoms.
[2020-12-23 02:33] VITALS: RESP 16
[2020-12-23 08:05] VITALS: BP 108/75; PULSE 59; TEMP 98
[2020-12-23] MEDS ORDERED: ASPIRIN 325 MG TAB PO SCH (09:00)
--- NOTE | 2020-12-23 09:47 | P.DS ---
Providers Date of admission: 12/22/20 13:16 Expected date of discharge: 12/23/20 Attending physician: Doris Resendez Consults: 12/22/20 13:16 Consult Physician Urgent Consulting Provider: Jadiel Aly Consult Reason/Comments: Atypical chest pain Do you want consulting provider notified?: Yes Primary care physician: Jenifer Patel [place] Hospital Course: This is a 35-year-old female with no significant past medical history that presented to the emergency room with a squeezing discomfort in her chest. Patient was evaluated in the ER. Twelve-lead EKG showed no acute ischemic changes. Patient was placed on observation for further evaluation. ACS ruled out. Serial troponin negative 3 sets. D-dimer was normal. Patient told me that she had a history of esophageal web and underwent EGD with dilation last August. She denies any odynophagia or dysphagia. Her symptoms resolved this morning. She will be discharged home in a stable condition. She was advised to follow-up with gastroenterology in the office as directed. Patient Condition at Discharge: Stable Plan - Discharge Summary Discharge Rx Participant: No New Discharge Prescriptions: Continue Esomeprazole Magnesium 40 mg PO BID 12 Days #24 capsule. Discharge Medication List Esomeprazole Magnesium 40 mg PO BID 12 Days #24 capsule. 09/12/20 [Rx] Follow up Appointment(s)/Referral(s): Jenifer Rm MD [Primary Care Provider] - 1-2 days Patient Instructions/Handouts: Angina (DC) Discharge Disposition: HOME SELF-CARE
[2020-12-23 13:07] LABS: Chol/HDL Ratio 3.06; LDL Cholesterol,Calculated 83.6 mg/dL (0.0-131.0); VLDL Calculation 21.4 mg/dL (5.00-40.00)
--- NOTE | 2020-12-23 14:05 | CONS ---
CONSULTATION HISTORY OF PRESENT ILLNESS: This is a 35-year-old lady who has been admitted to the hospital with episode of chest pain and some palpitations. Chest pain seems to be the major issue. 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 She has previous cervical spine surgery effusion, details are unclear. She also has a history of some esophageal dilatation performed because she had some swallowing issues and this was in August of this year. She came in with complaints of having some sharp discomfort in the chest. The quality of the pain seems very atypical. Pains are intermittent. She also has shortness of breath. She felt squeezing in the epigastric area. Her symptoms have completely resolved. She is feeling well at the time of my evaluation, has no chest pain, shortness of breath or palpitation. PAST MEDICAL HISTORY: 1. Remarkable for esophageal dilatation in August. 2. History of cervical spine surgery. 3. History of some laparoscopy for endometriosis. She also has a history of some migraine headaches. MEDICATIONS: Omeprazole 40 mg daily. ALLERGIES: None. REVIEW OF SYSTEMS: Unremarkable other than above-mentioned facts. PHYSICAL EXAMINATION: On examination, blood pressure is 110/70, pulse rate is 60 per minute regular. HEENT unremarkable. Fundus was not examined by me. Neck is supple. No JVD. I do not hear a carotid bruit. There is no thyromegaly. Heart exam reveals S1, S2 heard normally. No rub, murmur or gallop. Lungs are clear. Abdomen is soft, nontender. Lower extremities are normal pulses. No edema. Central nervous system normal. EKG revealed sinus mechanism, no acute changes. Some sinus arrhythmia noted. LAB DATA: Revealed unremarkable troponins. IMPRESSION: 1. Atypical chest pain. 2. History of esophageal dilatation with epigastric squeezing sensation. 3. History of cervical spine surgery. RECOMMENDATIONS: I am recommending that patient can be discharged but should have outpatient stress testing. 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 I discussed my thoughts in detail with the patient. I will be happy to see her in the office. Advised to call and we will see her within the next 2 weeks. Stress test can be performed as an outpatient. Okay for discharge. MMODL / IJN: [id number] /
--- NOTE | 2020-12-23 15:51 | ECHOF ---
Referral Reason:Atypical chest pain MEASUREMENTS -------- HEIGHT: 157.5 cm WEIGHT: 77.1 kg BP: IVSd: 0.8 cm (0.6 - 1.1) LVIDd: 4.2 cm (3.9 - 5.3) LVPWd: 1.0 cm (0.6 - 1.1) EDV(Teich): 80 ml IVSs: 1.0 cm LVIDs: 2.9 cm LVPWs: 1.1 cm %IVS Thck: 38 % ESV(Teich): 32 ml EF(Teich): 60 % %FS: 32 % SV(Teich): 48 ml LA Diam: 2.7 cm (2.7 - 3.8) RVIDd: 2.4 cm (< 3.3) LALs A4C: 4.6 cm LAAs A4C: 13.7 cm LAESV A-L A4C: 34 ml LAESV MOD A4C: 32 ml LALs A2C: 4.6 cm LAAs A2C: 15.8 cm LAESV A-L A2C: 46 ml LAESV MOD A2C: 43 ml LAESV(A-L): 40 ml LAESV Index (A-L): 22.22 ml/m Ao Diam: 2.3 cm (2.0 - 3.7) AV Cusp: 1.7 cm (1.5 - 2.6) EPSS: 0.3 cm MV E Kirill: 0.89 m/s MV DecT: 193 ms MV Dec [place]: 4.6 m/s MV A Kirill: 0.66 m/s MV E/A Ratio: 1.35 MV PHT: 56 ms TR Vmax: 1.59 m/s TR maxP.06 mmHg RAP: 5.00 mmHg RVSP: 15.06 mmHg MV EF SLOPE: 123.90 mm/s (70 - 150) MV EXCURSION: 20.87 mm (> 18.000) FINDINGS -------- Sinus rhythm. This was a technically good study. LV size, wall thickness and systolic function are normal, with an EF greater than 55%. The left alfredo tricular size is normal. The right ventricle is normal in size. The left atrial size is normal. The right atrial size is normal. The aortic valve is trileaflet, and appears structurally normal. No aortic stenosis or regurgitation. Mild mitral regurgitation is present. Mild tricuspid regurgitation present. Right ventricular systolic pressure is normal at < 35 mmHg. There is no pulmonic regurgitation present. The aortic root size is normal. There is no pericardial effusion. CONCLUSIONS -------- 1. LV size, wall thickness and systolic function are normal, with an EF greater than 55%. 2. The left ventricular size is normal. 3. The right ventricle is normal in size. 4. The left atrial size is normal. 5. The right atrial size is normal. 6. The aortic valve is trileaflet, and appears structurally normal. No aortic stenosis or regurgitati on. 7. Mild mitral regurgitation is present. 8. Mild tricuspid regurgitation present. 9. The aortic root size is normal. 10. There is no pericardial effusion. OPEN SHANK COVERER: Fiordaliza Cerrato RDCS
== END 2020-12-23 12:10 | disposition home or self-care (01) ==
LOC: EC 09:01 → 6NMEDSUR 13:16
PROVIDERS: ADMIT Internal Medicine; ATTEND Internal Medicine
DX: R07.89 Other chest pain (principal); R06.02 Shortness of breath; R00.2 Palpitations; R20.0 Anesthesia of skin; R42 Dizziness and giddiness; E04.9 Nontoxic goiter, unspecified; G43.909 Migraine, unspecified, not intractable, without status migrainosus; F32.9 Major depressive disorder, single episode, unspecified; F41.9 Anxiety disorder, unspecified; Z20.822 Contact with and (suspected) exposure to COVID-19; Z79.899 Other long term (current) drug therapy; Z87.19 Personal history of other diseases of the digestive system; Z98.1 Arthrodesis status; Z98.890 Other specified postprocedural states; Z84.89 Family history of other specified conditions
CPT/HCPCS: 93005 ×2; 96361; 96374; 99285; 36415; 93306; 85379; 83880; 80061; 80053; 82550; 83690; 83735; 84484; 85025; 85610; 85730; 87635; 71046; G0378 ×2; J1885

== ENCOUNTER 2021-03-28 09:15 | Emergency (ER) | payer OTHER ==
[2021-03-28 09:24] VITALS: BP 117/79; PULSE 82; RESP 18; TEMP 97.8
--- NOTE | 2021-03-28 09:45 | ED ---
Upper Extremity HPI - General Chief Complaint: Extremity Injury, Upper Stated Complaint: electric shock, arm pain Time Seen by Provider: 03/28/21 09:36 Source: patient, RN notes reviewed Mode of arrival: ambulatory Limitations: no limitations - History of Present Illness Initial Comments: 36-year-old female presents emergency Department chief complaint of right hand electrical shock. Patient states that this happened yesterday. Patient states that she had some tingling in her arm and noticed a small anisha on her hand. She called her PCP who told her to come emergency department. She denies any other complaints no chest pain or shortness breath no other associated complaints of the shock. - Related Data Previous Rx's Medication Instructions Recorded Esomeprazole Magnesium 40 mg PO BID 12 Days #24 capsule. 09/12/20 Allergies Allergy/AdvReac Type Severity Reaction Status Date / Time No Known Allergies Allergy Verified 03/28/21 09:23 Review of Systems ROS Statement: Those systems with pertinent positive or pertinent negative responses have been documented in the HPI. ROS Other: All systems not noted in ROS Statement are negative. Past Medical History Past Medical History: Thyroid Disorder Additional Past Medical History / Comment(s): migraines, thyroid goiter, palpitations History of Any Multi-Drug Resistant Organisms: None Reported Past Surgical History: Orthopedic Surgery Additional Past Surgical History / Comment(s): knee surgery and laporoscopy for endometriosis, neck fusion Past Anesthesia/Blood Transfusion Reactions: No Reported Reaction, Family History of Problems w/ Anesthesia, Motion Sickness Additional Past Anesthesia/Blood Transfusion Reaction / Comment(s): mother=ponv Past Psychological History: Anxiety, Depression Smoking Status: Never smoker Past Alcohol Use History: Rare Past Drug Use History: None Reported - Past Family History Mother Family Medical History: No Reported History General Exam Limitations: no limitations General appearance: alert, in no apparent distress Head exam: Present: atraumatic, normocephalic, normal inspection Eye exam: Present: normal appearance, PERRL, EOMI. Absent: scleral icterus, conjunctival injection, periorbital swelling ENT exam: Present: normal exam, mucous membranes moist Neck exam: Present: normal inspection. Absent: tenderness, meningismus, lymphadenopathy Respiratory exam: Present: normal lung sounds bilaterally. Absent: respiratory distress, wheezes, rales, rhonchi, stridor Cardiovascular Exam: Present: regular rate, normal rhythm, normal heart sounds. Absent: systolic murmur, diastolic murmur, rubs, gallop, clicks Extremities exam: Present: normal inspection, full ROM, normal capillary refill. Absent: tenderness, pedal edema, joint swelling, calf tenderness Neurological exam: Present: alert, oriented X3, CN II-XII intact, reflexes normal. Absent: motor sensory deficit Course Vital Signs 03/28/21 09:16 Temperature 97.8 F Pulse Rate 82 Respiratory 18 Rate Blood Pressure 117/79 O2 Sat by Pulse 9 L Oximetry Medical Decision Making - Medical Decision Making Patient is asymptomatic EKG is unremarkable patient we discharged stable condition. Disposition Clinical Impression: Electrical shock of hand Disposition: HOME SELF-CARE Condition: Stable Instructions (If sedation given, give patient instructions): Electrical Gaming in Adults (ED) Additional Instructions: Please return to the Emergency Department if symptoms worsen or any other concerns. Is patient prescribed a controlled substance at d/c from ED?: No Referrals: Jenifer Rm MD [Primary Care Provider] - 1-2 days Time of Disposition: 09:45
== END 2021-03-28 09:58 | disposition home or self-care (01) ==
LOC: EC 09:15
DX: T75.4XXA Electrocution, initial encounter (principal); G43.909 Migraine, unspecified, not intractable, without status migrainosus; F32.9 Major depressive disorder, single episode, unspecified; F41.9 Anxiety disorder, unspecified; E04.9 Nontoxic goiter, unspecified
CPT/HCPCS: 93005; 99284

== ENCOUNTER → 2021-08-22 | Outpatient (CLI) | payer OTHER ==
[2021-08-22 14:25] LABS: Basophils # (A) 0.02 X 10*3/uL (0.00-0.10); Basophils % (A) 0.4 %; Eosinophils # (A) 0.12 X 10*3/uL (0.04-0.35); Eosinophils % (A) 2.7 %; HGB 14.2 g/dL (12.0-15.0); Lymphocytes % (A) 33.6 %; MCH 30.5 pg (27.0-32.0); MCV 92.5 fL (80.0-97.0); Mean Platelet Volume 10.2 fL (9.5-12.2); Monocytes # (A) 0.32 X 10*3/uL (0.20-1.00); Monocytes % (A) 7.2 %; Neutrophils % (A) 55.9 %; Platelet Count 302 X 10*3/uL (140-440); RBC 4.65 X 10*6/uL (4.10-5.20); RDW 12.3 % (11.5-14.5); WBC 4.47 X 10*3/uL (4.50-10.00)
[2021-08-22 18:36] LABS: ALT 32 U/L (8-44); AST 28 U/L (13-35); Albumin 4.7 g/dL (3.8-4.9); Albumin/Globulin Ratio 1.88 (1.60-3.17); Alkaline Phosphatase 75 U/L (41-126); BUN/Creat Ratio 12.89 Ratio (12.00-20.00); Blood Urea Nitrogen 11.6 mg/dL (9.0-27.0); Calcium 9.4 mg/dL (8.7-10.3); Carbon Dioxide 16.8 mmol/L (20.0-27.5); Chloride 106 mmol/L (96-109); Follicle Stimulating Hormone 8.7 mIU/mL; Globulin 2.5 g/dL (1.6-3.3); Glucose 89 mg/dL (70-110); Luteinizing Hormone 14.5 mIU/mL; Non-African American GFR(CKD) 82.8 (60.0-200.0); Potassium 4.2 mmol/L (3.5-5.5); Sodium 143 mmol/L (135-145); Total Protein 7.2 g/dL (6.2-8.2)
[2021-08-22 23:00] LABS: Estradiol 49.1 pg/mL
== END | disposition home or self-care (01) ==
LOC: LABWHC1 07:45
PROVIDERS: ATTEND Family Medicine
DX: E04.9 Nontoxic goiter, unspecified (principal); L71.0 Perioral dermatitis; M99.05 Segmental and somatic dysfunction of pelvic region; G47.9 Sleep disorder, unspecified
CPT/HCPCS: 36415; 80053; 82626; 82670; 83001; 83002; 84146; 84403; 84443; 85025

== ENCOUNTER 2021-10-05 08:50 | Emergency (ER) | payer OTHER ==
[2021-10-05 08:56] VITALS: TEMP 98.5
[2021-10-05] MEDS ORDERED: SODIUM CHLORIDE 0.9% 1,000 ML IV STA (09:26)
[2021-10-05] MEDS ORDERED: ASPIRIN 81 MG PO STA (09:26)
[2021-10-05 09:48] LABS: Basophils # (A) 0.1 k/uL (0-0.2); Basophils % (A) 1 %; Eosinophils # (A) 0.1 k/uL (0-0.7); Eosinophils % (A) 3 %; HCT 42.4 % (34.0-46.0); HGB 14.3 gm/dL (11.4-16.0); Lymphocytes # (A) 1.5 k/uL (1.0-4.8); Lymphocytes % (A) 28 %; MCH 31.3 pg (25.0-35.0); MCHC 33.7 g/dL (31.0-37.0); Mean Platelet Volume 7.4; Monocytes # (A) 0.3 k/uL (0-1.0); Monocytes % (A) 5 %; Neutrophils # (A) 3.2 k/uL (1.3-7.7); Neutrophils % (A) 62 %; Platelet Count 256 k/uL (150-450); RBC 4.56 m/uL (3.80-5.40); RDW 11.9 % (11.5-15.5); WBC 5.3 k/uL (3.8-10.6)
[2021-10-05 09:58] LABS: HCG,Qualitative Serum Not Detected
[2021-10-05 10:01] LABS: African American GFR (CKD) >90 (>60 ml/min/1.73 sqM); Albumin 4.3 g/dL (3.5-5.0); Anion Gap 5 mmol/L; Blood Urea Nitrogen 13 mg/dL (7-17); Carbon Dioxide 23 mmol/L (22-30); Chloride 110 mmol/L (98-107); Glucose 96 mg/dL (74-99); Non-African American GFR(CKD) >90 (>60 ml/min/1.73 sqM); Sodium 138 mmol/L (137-145); Total Protein 7.4 g/dL (6.3-8.2)
--- NOTE | 2021-10-05 10:01 | XR ---
EXAMINATION TYPE: XR chest 2V DATE OF EXAM: 10/05/2021 COMPARISON: 12/22/20 HISTORY: Chest pain TECHNIQUE: Frontal and lateral views of the chest are obtained. FINDINGS: There is no focal air space opacity. No evidence for pneumothorax. No pleural effusion. The cardiac silhouette size is within normal limits. The osseous structures are grossly intact. IMPRESSION: 1. No acute cardiopulmonary process.
[2021-10-05 10:02] LABS: ALT 21 U/L (4-34); Calcium 8.9 mg/dL (8.4-10.2); Total Bilirubin 0.6 mg/dL (0.2-1.3)
[2021-10-05 10:18] LABS: INR 0.9 (<1.2); Partial Thromboplastin Time 24.1 sec (22.0-30.0); Prothrombin Time 10.1 sec (9.0-12.0)
[2021-10-05 10:34] LABS: Potassium 4.5 mmol/L (3.5-5.1)
[2021-10-05 10:36] LABS: AST 34 U/L (14-36); Alkaline Phosphatase 65 U/L (38-126); Magnesium 1.9 mg/dL (1.6-2.3)
--- NOTE | 2021-10-05 11:01 | ED ---
General Adult HPI - General Chief complaint: Chest Pain Stated complaint: chest pain Time Seen by Provider: 10/05/21 09:10 Source: patient, RN notes reviewed, old records reviewed Mode of arrival: ambulatory Limitations: no limitations - History of Present Illness Initial comments: Patient is a 36-year-old female with past medical history remarkable for anxiety, thyroid disorder presents emergency Department complaining of heart palpitations. She describes her palpitations as been present since proximate 3 AM this morning. States there are some chest discomfort associated with the palpitations. States it is improving but wanted to be evaluated her mother wanted her to come to the emergency department to be seen. Does endorse some lightheadedness but denies any dizziness or vertigo. Denies any abdominal pain, nausea, vomiting. His no other acute complaints at this time. Denies any fevers, chills, cough. Presents over concern for her heart palpitations. - Related Data Home Medications Medication Instructions Recorded Confirmed No Known Home Medications 10/05/21 10/05/21 Allergies Allergy/AdvReac Type Severity Reaction Status Date / Time No Known Allergies Allergy Verified 10/05/21 10:04 Review of Systems ROS Statement: Those systems with pertinent positive or pertinent negative responses have been documented in the HPI. Review of Systems: CONST: Denies fever EYES: Denies blurry vision ENT: Denies nasal congestion C/V: Endorses palpitations RESP: Denies shortness of breath GI: Denies abdominal pain : Denies dysuria SKIN: Denies rash. MSK: Denies joint pain. NEURO: Denies headache ROS Other: All systems not noted in ROS Statement are negative. Past Medical History Past Medical History: Thyroid Disorder Additional Past Medical History / Comment(s): migraines, thyroid goiter, palpitations History of Any Multi-Drug Resistant Organisms: None Reported Past Surgical History: Orthopedic Surgery Additional Past Surgical History / Comment(s): knee surgery and laporoscopy for endometriosis, neck fusion Past Anesthesia/Blood Transfusion Reactions: No Reported Reaction, Family History of Problems w/ Anesthesia, Motion Sickness Additional Past Anesthesia/Blood Transfusion Reaction / Comment(s): mother=ponv Past Psychological History: Anxiety, Depression Smoking Status: Never smoker Past Alcohol Use History: Rare Past Drug Use History: None Reported - Past Family History Mother Family Medical History: No Reported History General Exam - General Exam Comments Initial Comments: General: Appears in no acute distress. HEAD: Normal with no signs of head trauma. EYES: PERRLA, EOMI, conjunctiva normal, no discharge. ENT: Hearing grossly intact, normal oropharynx. RESPIRATORY: Clear breath sounds bilaterally. No wheezes, rales, or rhonchi. C/V: Regular rate and rhythm. S1 and S2 auscultated, no edema, peripheral pulses 2+ and intact throughout ABD: Abd is soft, nontender, nondistended EXT: Normal range of motion, no obvious deformity SKIN: No rashes or lesions observed on exposed skin. NEURO: Alert and oriented x 4. Cranial nerves II-XII intact. No focal sensory or strength deficits. NIH of 0. GCS is 15. Able to ambulate without difficulty. Limitations: no limitations Course Vital Signs 10/05/21 10/05/21 08:53 11:15 Temperature 98.5 F Pulse Rate 89 79 Respiratory 20 18 Rate Blood Pressure 109/74 107/69 O2 Sat by Pulse 100 98 Oximetry Medical Decision Making - Medical Decision Making Based on the patient's presentation and physical exam, I'm concerned for possible cardiopulmonary etiology for her current symptoms. This includes possible thyroid disease as well. This also possible with her history of anxiety and panic attacks that she was having an anxiety attack. I discussed this with the patient and she expressed understanding. We will obtain a cardiac workup. She'll be given an aspirin and 1 L fluid bolus. She was in agreement this plan. EKG showed no signs of acute ischemia. Chest x-ray revealed no acute cardiopulmonary process. Laboratory studies were remarkable for a negative troponin. Patient is not . TSH is within normal limits. D-dimer is within normal limits. Remainder of the labs are unremarkable. On reevaluation, patient remains within normal limits and stable. Vital signs remained within normal limits throughout his stay. She is asymptomatic at this time. I discussed results with the patient. I do believe it is safe for her to be discharged home. Patient's heart score is low at 1. She was in agreement this plan. I instructed the patient to follow up with their PCP in the next 3 days. I explained that the patient should return to the emergency department if they experience any worsening symptoms. Strict return precautions were discussed with the patient. The patient expressed understanding of these instructions. I answered all questions that the patient had. The patient was discharged home in good condition with their prescriptions and follow up information. - Lab Data Result diagrams: 10/05/21 09:42 10/05/21 09:42 Lab Results 10/05/21 10/05/21 10/05/21 Range/Units 09:42 09:42 09:42 WBC 5.3 (3.8-10.6) k/uL RBC 4.56 (3.80-5.40) m/uL Hgb 14.3 (11.4-16.0) gm/dL Hct 42.4 (34.0-46.0) % MCV 93.0 (80.0-100.0) fL MCH 31.3 (25.0-35.0) pg MCHC 33.7 (31.0-37.0) g/dL RDW 11.9 (11.5-15.5) % Plt Count 256 (150-450) k/uL MPV 7.4 Neutrophils % 62 % Lymphocytes % 28 % Monocytes % 5 % Eosinophils % 3 % Basophils % 1 % Neutrophils # 3.2 (1.3-7.7) k/uL Lymphocytes # 1.5 (1.0-4.8) k/uL Monocytes # 0.3 (0-1.0) k/uL Eosinophils # 0.1 (0-0.7) k/uL Basophils # 0.1 (0-0.2) k/uL PT 10.1 (9.0-12.0) sec INR 0.9 (<1.2) APTT 24.1 (22.0-30.0) sec D-Dimer 0.25 (<0.60) mg/L FEU Sodium 138 (137-145) mmol/L Potassium 4.5 (3.5-5.1) mmol/L Chloride 110 H (98-107) mmol/L Carbon Dioxide 23 (22-30) mmol/L Anion Gap 5 mmol/L BUN 13 (7-17) mg/dL Creatinine 0.78 (0.52-1.04) mg/dL Est GFR (CKD-EPI)AfAm >90 (>60 ml/min/1.73 sqM) Est GFR (CKD-EPI)NonAf >90 (>60 ml/min/1.73 sqM) Glucose 96 (74-99) mg/dL Calcium 8.9 (8.4-10.2) mg/dL Magnesium 1.9 (1.6-2.3) mg/dL Total Bilirubin 0.6 (0.2-1.3) mg/dL AST 34 (14-36) U/L ALT 21 (4-34) U/L Alkaline Phosphatase 65 (38-126) U/L Troponin I (0.000-0.034) ng/mL Total Protein 7.4 (6.3-8.2) g/dL Albumin 4.3 (3.5-5.0) g/dL TSH 1.830 (0.465-4.680) mIU/L HCG, Qual Not Detected 10/05/21 Range/Units 09:42 WBC (3.8-10.6) k/uL RBC (3.80-5.40) m/uL Hgb (11.4-16.0) gm/dL Hct (34.0-46.0) % MCV (80.0-100.0) fL MCH (25.0-35.0) pg MCHC (31.0-37.0) g/dL RDW (11.5-15.5) % Plt Count (150-450) k/uL MPV Neutrophils % % Lymphocytes % % Monocytes % % Eosinophils % % Basophils % % Neutrophils # (1.3-7.7) k/uL Lymphocytes # (1.0-4.8) k/uL Monocytes # (0-1.0) k/uL Eosinophils # (0-0.7) k/uL Basophils # (0-0.2) k/uL PT (9.0-12.0) sec INR (<1.2) APTT (22.0-30.0) sec D-Dimer (<0.60) mg/L FEU Sodium (137-145) mmol/L Potassium (3.5-5.1) mmol/L Chloride (98-107) mmol/L Carbon Dioxide (22-30) mmol/L Anion Gap mmol/L BUN (7-17) mg/dL Creatinine (0.52-1.04) mg/dL Est GFR (CKD-EPI)AfAm (>60 ml/min/1.73 sqM) Est GFR (CKD-EPI)NonAf (>60 ml/min/1.73 sqM) Glucose (74-99) mg/dL Calcium (8.4-10.2) mg/dL Magnesium (1.6-2.3) mg/dL Total Bilirubin (0.2-1.3) mg/dL AST (14-36) U/L ALT (4-34) U/L Alkaline Phosphatase (38-126) U/L Troponin I <0.012 (0.000-0.034) ng/mL Total Protein (6.3-8.2) g/dL Albumin (3.5-5.0) g/dL TSH (0.465-4.680) mIU/L HCG, Qual - EKG Data -: EKG Interpreted by Me EKG Comments: 12-lead Electrocardiogram Interpretation Note EKG was reviewed and interpreted by myself. 12-lead ECG performed at 0924 is interpreted by me as revealing normal sinus rhythm at a rate of 72 beats per minute. Orient is normal. ND interval is 157 ms, QRS duration is 82 ms, QTc is 397 ms. There were no ST or T wave abnormalities to suggest myocardial ischemia or injury. R wave progression across the precordium was satisfactory. By my interpretation this EKG is non-diagnostic for acute ischemia. Disposition Clinical Impression: Heart palpitations, Atypical chest pain Disposition: HOME SELF-CARE Condition: Good Instructions (If sedation given, give patient instructions): Heart Palpitations (ED) Is patient prescribed a controlled substance at d/c from ED?: No Referrals: Jenifer Rm MD [Primary Care Provider] - 1-2 days
[2021-10-05 11:16] VITALS: BP 107/69; PULSE 79; RESP 18
== END 2021-10-05 11:16 | disposition home or self-care (01) ==
LOC: EC 08:50
DX: R00.2 Palpitations (principal); R07.89 Other chest pain
CPT/HCPCS: 36415; 71046; 80053; 83735; 84443; 84484; 84703; 85025; 85379; 85610; 85730; 93005; 96360; 96361; 99285

== ENCOUNTER → 2021-12-28 | Outpatient (CLI) | payer OTHER ==
--- NOTE | 2021-12-28 10:01 | US ---
EXAMINATION TYPE: US thyroid st tissue head/neck DATE OF EXAM: 12/28/2021 COMPARISON: CT: 09/04/20 CLINICAL HISTORY: E04.9 NONTOXIC GOITER, UNSPECIFIED. Hx of thyroid nodule. Not on thyroid medication . GLAND SIZE: Right Lobe: 5.6 x 1.6 x 1.7 cm Overall Parenchyma: homogenous Left Lobe: 5.5 x 1.6 x 1.4 cm Overall Parenchyma: homogeneous Isthmus Thickness: 0.4 cm NODULES RIGHT: # of nodules measured on right: 0 LEFT: # of nodules measured on left: 1 1. 0.7 X 0.5 x 0.2 cm, mid lateral, cystic or almost completely cystic, anechoic nodule, which is w ider than tall, with smooth margins, without echogenic foci. TR 1 ISTHMUS: # of nodules measured in the isthmus: 0 Bilateral neck scanned, no evidence of lymphadenopathy. IMPRESSION: 1. Benign findings left lobe thyroid. 2017 ACR TI-RADS LEVEL: *Highest TI-RADS level nodule reported
== END | disposition home or self-care (01) ==
LOC: RADUSWWP 07:01
PROVIDERS: ATTEND Obstetrics & Gynecology
DX: E04.1 Nontoxic single thyroid nodule (principal)
CPT/HCPCS: 76536

== ENCOUNTER → 2021-12-28 | Outpatient (CLI) | payer OTHER ==
[2021-12-28 11:33] LABS: Basophils # (A) 0.03 X 10*3/uL (0.00-0.10); Basophils % (A) 0.6 %; Eosinophils # (A) 0.19 X 10*3/uL (0.04-0.35); HCT 42.5 % (37.2-46.3); HGB 13.9 g/dL (12.0-15.0); Immature Grans, Automated 0 %; Lymphocytes # (A) 1.46 X 10*3/uL (0.90-5.00); Lymphocytes % (A) 30.4 %; MCHC 32.7 g/dL (32.0-37.0); MCV 91.6 fL (80.0-97.0); Mean Platelet Volume 9.9 fL (9.5-12.2); Monocytes # (A) 0.33 X 10*3/uL (0.20-1.00); Monocytes % (A) 6.9 %; NRBC Per 100 WBC 0 /100 WBCS (0.0-0.0); Neutrophils # (A) 2.79 X 10*3/uL (1.80-7.70); Neutrophils % (A) 58.1 %; Platelet Count 291 X 10*3/uL (140-440); RBC 4.64 X 10*6/uL (4.10-5.20); RDW 12.4 % (11.5-14.5)
[2021-12-28 11:54] LABS: Estradiol 55.9 pg/mL
[2021-12-28 12:05] LABS: ALT 23 U/L (8-44); AST 26 U/L (13-35); African American GFR (CKD) 110.7 (60.0-200.0); Albumin 4.3 g/dL (3.8-4.9); Albumin/Globulin Ratio 1.79 (1.60-3.17); Alkaline Phosphatase 84 U/L (41-126); BUN/Creat Ratio 17.25 Ratio (12.00-20.00); Blood Urea Nitrogen 13.8 mg/dL (9.0-27.0); Calcium 8.9 mg/dL (8.7-10.3); Carbon Dioxide 25.8 mmol/L (20.0-27.5); Chloride 105 mmol/L (96-109); Globulin 2.4 g/dL (1.6-3.3); Glucose 103 mg/dL (70-110); HCG,Quantitative Serum <3.0 (0.0-6.0); Non-African American GFR(CKD) 95.5 (60.0-200.0); Potassium 4.1 mmol/L (3.5-5.5); Sodium 139 mmol/L (135-145); Total Protein 6.7 g/dL (6.2-8.2)
== END | disposition home or self-care (01) ==
LOC: LABWHC1 06:57
PROVIDERS: ATTEND Registered Nurse
DX: E28.2 Polycystic ovarian syndrome (principal)
CPT/HCPCS: 36415; 80053; 82627; 82670; 83498; 84146; 84439; 84443; 84702; 85025

== ENCOUNTER 2022-03-06 06:20 | Emergency (ER) | payer OTHER ==
[2022-03-06 06:35] VITALS: BP 112/59; PULSE 74; RESP 18; TEMP 98.4
[2022-03-06] MEDS ORDERED: METOCLOPRAMIDE 5 MG/ML 2 ML VIAL IVP STA (06:35)
[2022-03-06] MEDS ORDERED: SODIUM CHLORIDE 0.9% 1,000 ML IV STA (06:35)
[2022-03-06] MEDS ORDERED: KETOROLAC 15 MG/ML 1 ML VIAL IVP STA (06:35)
--- NOTE | 2022-03-06 06:58 | ED ---
Abdominal Pain HPI - General Chief Complaint: Abdominal Pain Stated Complaint: Abdominal pain Time Seen by Provider: 03/06/22 06:36 Source: patient Mode of arrival: ambulatory - History of Present Illness Initial Comments: Patient is a 36-year-old female presenting with chief complaint of abdominal pain. Patient states that she has had gnawing epigastric pain for the last 36 hours. Admits to pain with radiation to the back. Patient noticed increased worsening in symptoms with eating or drinking. She admits to nausea with no vomiting. Patient states she has had diarrhea, however this is normal for her. She denies any fever, chills, chest pain, shortness of breath, hematochezia, melena, dysuria, hematuria, urgency, frequency, flank pain. - Related Data Home Medications Medication Instructions Recorded Confirmed No Known Home Medications 10/05/21 10/05/21 Allergies Allergy/AdvReac Type Severity Reaction Status Date / Time No Known Allergies Allergy Verified 03/06/22 06:34 Review of Systems ROS Statement: Those systems with pertinent positive or pertinent negative responses have been documented in the HPI. ROS Other: All systems not noted in ROS Statement are negative. Past Medical History Past Medical History: Thyroid Disorder Additional Past Medical History / Comment(s): migraines, thyroid goiter, palpitations History of Any Multi-Drug Resistant Organisms: None Reported Past Surgical History: Orthopedic Surgery Additional Past Surgical History / Comment(s): knee surgery and laporoscopy for endometriosis, neck fusion Past Anesthesia/Blood Transfusion Reactions: No Reported Reaction, Family History of Problems w/ Anesthesia, Motion Sickness Additional Past Anesthesia/Blood Transfusion Reaction / Comment(s): mother=ponv Past Psychological History: Anxiety, Depression Smoking Status: Never smoker Past Alcohol Use History: Rare Past Drug Use History: None Reported - Past Family History Mother Family Medical History: No Reported History General Exam Limitations: no limitations General appearance: alert, in no apparent distress Head exam: Present: atraumatic, normocephalic, normal inspection Eye exam: Present: normal appearance, EOMI. Absent: scleral icterus, periorbital swelling Neck exam: Present: normal inspection Respiratory exam: Present: normal lung sounds bilaterally. Absent: respiratory distress, wheezes, rales, rhonchi, stridor Cardiovascular Exam: Present: regular rate, normal rhythm, normal heart sounds. Absent: systolic murmur, diastolic murmur, rubs, gallop, clicks GI/Abdominal exam: Present: soft. Absent: distended, tenderness, guarding, rebound, rigid Neurological exam: Present: alert, oriented X3, CN II-XII intact Psychiatric exam: Present: normal affect, normal mood Skin exam: Present: warm, dry, intact, normal color. Absent: rash Course Vital Signs 03/06/22 06:28 Temperature 98.4 F Pulse Rate 74 Respiratory 18 Rate Blood Pressure 112/59 O2 Sat by Pulse 100 Oximetry Medical Decision Making - Medical Decision Making Patient is a 36-year-old female presenting with chief complaint of abdominal pain. Located in the epigastric region and has been ongoing for the last 36 hours. EKG shows no acute changes. Lab work is grossly negative. While waiting for results, patient left abruptly, telling her nurse that she had a situation at home with her child and needed to leave. Patient left AGAINST MEDICAL ADVICE. Patient should follow-up with PCP in one to 2 days and report back to ER for new or worse symptoms. My attending is Dr. Hardy. - Lab Data Result diagrams: 03/06/22 08:43 03/06/22 08:43 Lab Results 03/06/22 03/06/22 03/06/22 Range/Units 08:43 08:43 08:43 WBC 6.6 (3.8-10.6) k/uL RBC 4.97 (3.80-5.40) m/uL Hgb 15.1 (11.4-16.0) gm/dL Hct 45.2 (34.0-46.0) % MCV 90.9 (80.0-100.0) fL MCH 30.3 (25.0-35.0) pg MCHC 33.3 (31.0-37.0) g/dL RDW 12.2 (11.5-15.5) % Plt Count 297 (150-450) k/uL MPV 7.5 Neutrophils % 66 % Lymphocytes % 25 % Monocytes % 4 % Eosinophils % 4 % Basophils % 1 % Neutrophils # 4.3 (1.3-7.7) k/uL Lymphocytes # 1.7 (1.0-4.8) k/uL Monocytes # 0.3 (0-1.0) k/uL Eosinophils # 0.3 (0-0.7) k/uL Basophils # 0.0 (0-0.2) k/uL PT 9.8 (9.0-12.0) sec INR 0.9 (<1.2) APTT 22.4 (22.0-30.0) sec Sodium 139 (137-145) mmol/L Potassium 4.0 (3.5-5.1) mmol/L Chloride 105 (98-107) mmol/L Carbon Dioxide 21 L (22-30) mmol/L Anion Gap 13 mmol/L BUN 9 (7-17) mg/dL Creatinine 0.75 (0.52-1.04) mg/dL Est GFR (CKD-EPI)AfAm >90 (>60 ml/min/1.73 sqM) Est GFR (CKD-EPI)NonAf >90 (>60 ml/min/1.73 sqM) Glucose 88 (74-99) mg/dL Calcium 9.2 (8.4-10.2) mg/dL Total Bilirubin 0.4 (0.2-1.3) mg/dL AST 34 (14-36) U/L ALT 22 (4-34) U/L Alkaline Phosphatase 90 (38-126) U/L Troponin I (0.000-0.034) ng/mL Total Protein 7.8 (6.3-8.2) g/dL Albumin 4.8 (3.5-5.0) g/dL Amylase 56 (30-110) U/L Lipase 212 (23-300) U/L 03/06/22 Range/Units 08:43 WBC (3.8-10.6) k/uL RBC (3.80-5.40) m/uL Hgb (11.4-16.0) gm/dL Hct (34.0-46.0) % MCV (80.0-100.0) fL MCH (25.0-35.0) pg MCHC (31.0-37.0) g/dL RDW (11.5-15.5) % Plt Count (150-450) k/uL MPV Neutrophils % % Lymphocytes % % Monocytes % % Eosinophils % % Basophils % % Neutrophils # (1.3-7.7) k/uL Lymphocytes # (1.0-4.8) k/uL Monocytes # (0-1.0) k/uL Eosinophils # (0-0.7) k/uL Basophils # (0-0.2) k/uL PT (9.0-12.0) sec INR (<1.2) APTT (22.0-30.0) sec Sodium (137-145) mmol/L Potassium (3.5-5.1) mmol/L Chloride (98-107) mmol/L Carbon Dioxide (22-30) mmol/L Anion Gap mmol/L BUN (7-17) mg/dL Creatinine (0.52-1.04) mg/dL Est GFR (CKD-EPI)AfAm (>60 ml/min/1.73 sqM) Est GFR (CKD-EPI)NonAf (>60 ml/min/1.73 sqM) Glucose (74-99) mg/dL Calcium (8.4-10.2) mg/dL Total Bilirubin (0.2-1.3) mg/dL AST (14-36) U/L ALT (4-34) U/L Alkaline Phosphatase (38-126) U/L Troponin I <0.012 (0.000-0.034) ng/mL Total Protein (6.3-8.2) g/dL Albumin (3.5-5.0) g/dL Amylase (30-110) U/L Lipase (23-300) U/L - EKG Data EKG Comments: Sinus rhythm with sinus arrhythmia rate of 64. SD interval 159. QRS duration 80. QT/QTC 392/401. Normal axis. No ischemic ST or T-wave changes. Disposition Clinical Impression: Abdominal pain Narrative: The nurse informed me that the patient left abruptly, stating that there was something going on with her child at home and she had to leave immediately Disposition: Left Against Medical Advice Condition: Undetermined Is patient prescribed a controlled substance at d/c from ED?: No Referrals: Jenifer Rm MD [Primary Care Provider] - 1-2 days Time of Disposition: 09:07
[2022-03-06 08:47] LABS: Basophils % (A) 1 %; Eosinophils # (A) 0.3 k/uL (0-0.7); Eosinophils % (A) 4 %; HCT 45.2 % (34.0-46.0); HGB 15.1 gm/dL (11.4-16.0); Lymphocytes # (A) 1.7 k/uL (1.0-4.8); Lymphocytes % (A) 25 %; MCH 30.3 pg (25.0-35.0); MCHC 33.3 g/dL (31.0-37.0); MCV 90.9 fL (80.0-100.0); Mean Platelet Volume 7.5; Monocytes # (A) 0.3 k/uL (0-1.0); Monocytes % (A) 4 %; Neutrophils # (A) 4.3 k/uL (1.3-7.7); Neutrophils % (A) 66 %; Platelet Count 297 k/uL (150-450); RBC 4.97 m/uL (3.80-5.40); RDW 12.2 % (11.5-15.5); WBC 6.6 k/uL (3.8-10.6)
[2022-03-06 08:58] LABS: ALT 22 U/L (4-34); AST 34 U/L (14-36); African American GFR (CKD) >90 (>60 ml/min/1.73 sqM); Albumin 4.8 g/dL (3.5-5.0); Alkaline Phosphatase 90 U/L (38-126); Amylase 56 U/L (30-110); Anion Gap 13 mmol/L; Blood Urea Nitrogen 9 mg/dL (7-17); Calcium 9.2 mg/dL (8.4-10.2); Carbon Dioxide 21 mmol/L (22-30); Chloride 105 mmol/L (98-107); Glucose 88 mg/dL (74-99); Lipase 212 U/L (23-300); Non-African American GFR(CKD) >90 (>60 ml/min/1.73 sqM); Sodium 139 mmol/L (137-145); Total Bilirubin 0.4 mg/dL (0.2-1.3); Total Protein 7.8 g/dL (6.3-8.2)
[2022-03-06] MEDS ORDERED: MAG HYDROX/AL HYDROX/SIMETH 30 ML, HYOSCYAMINE ELIXIR 10 ML, LIDOCAINE VISCOUS 2% 10 ML PO STA ×3 (09:00)
[2022-03-06] MEDS ORDERED: FAMOTIDINE 20 MG/2 ML VIAL IV STA (09:00)
[2022-03-06 09:06] LABS: INR 0.9 (<1.2); Prothrombin Time 9.8 sec (9.0-12.0)
[2022-03-06 09:07] LABS: Partial Thromboplastin Time 22.4 sec (22.0-30.0)
== END 2022-03-06 09:10 | disposition left against medical advice (07) ==
LOC: EC 06:20
DX: R10.13 Epigastric pain (principal); R11.0 Nausea; I49.8 Other specified cardiac arrhythmias; E07.9 Disorder of thyroid, unspecified
CPT/HCPCS: 36415; 93005; 80053; 82150; 83690; 84484; 85025; 85610; 85730; 99284; 96374; J2765

== ENCOUNTER → 2023-08-05 | Outpatient (CLI) | payer OTHER ==
--- NOTE | 2023-08-05 10:23 | US ---
EXAMINATION TYPE: US extremity nonvasculr [facility] DATE OF EXAM: 08/05/2023 COMPARISON: NONE CLINICAL INDICATION: Female, 38 years old with history of R22.42 LOCALIZED SWELLING, MASS AND LUMP, L EFT LOW; Hx multiple lumps anterior left thigh x few months TECHNIQUE: FINDINGS: Anterior left medial upper thigh AOC 1 = 0.6 x 0.4 x 0.7 cm ? Lipoma Anterior left lateral mid thigh AOC 2 = 1.0 x 0.7 x 1.4 cm ? Lipoma Anterior left medial lower thigh AOC 3; No lesions noted IMPRESSION: 1. Slightly hyperechoic lesions within the areas of concern may be small lipomas.
== END | disposition home or self-care (01) ==
LOC: RADUSWWP 08:08
PROVIDERS: ATTEND Family Medicine
DX: R22.42 Localized swelling, mass and lump, left lower limb (principal)

== ENCOUNTER 2024-01-04 17:57 | Emergency (ER) | payer OTHER ==
[2024-01-04 18:20] VITALS: TEMP 98.5
--- NOTE | 2024-01-04 19:40 | ED ---
Abdominal Pain HPI - General Chief Complaint: Abdominal Pain Stated Complaint: bleeding ulcer/blood in stool Time Seen by Provider: 01/04/24 18:26 Source: patient Mode of arrival: ambulatory Limitations: no limitations - History of Present Illness Initial Comments: 38-year-old female presenting with chief complaint of abdominal pain. Patient states that she has had a gnawing pain in the epigastric region for several days. She states that a few days ago she started having lower abdominal cramping which radiates to her back. She admits to nausea with no vomiting. Relevant surgical history includes laparoscopic surgery for endometriosis. Patient states that she has had bright red blood with her bowel movements since yesterday. She does have history of hemorrhoids but states that this is much more bleeding than she is used to. She states that she has felt "unwell". No fevers. No vomiting. Chest pain or difficulty breathing. No dysuria or hematuria. No vaginal bleeding or abnormal discharge. - Related Data Home Medications Medication Instructions Recorded Confirmed Dulaglutide [Trulicity] 0.75 mg SQ MO 09/16/22 09/16/22 Previous Rx's Medication Instructions Recorded Pantoprazole Sodium [Protonix] 20 mg PO DAILY #15 tab 01/04/24 Sucralfate [Carafate] 1 gm PO BID #20 tablet 01/04/24 Allergies Allergy/AdvReac Type Severity Reaction Status Date / Time No Known Allergies Allergy Verified 01/04/24 18:21 Review of Systems ROS Statement: Those systems with pertinent positive or pertinent negative responses have been documented in the HPI. ROS Other: All systems not noted in ROS Statement are negative. Past Medical History Past Medical History: Thyroid Disorder Additional Past Medical History / Comment(s): migraines, thyroid goiter, palpitations History of Any Multi-Drug Resistant Organisms: None Reported Past Surgical History: Orthopedic Surgery Additional Past Surgical History / Comment(s): knee surgery and laporoscopy for endometriosis, neck fusion Past Anesthesia/Blood Transfusion Reactions: No Reported Reaction, Family History of Problems w/ Anesthesia, Motion Sickness Additional Past Anesthesia/Blood Transfusion Reaction / Comment(s): mother=ponv Past Psychological History: Anxiety, Depression Smoking Status: Never smoker Past Alcohol Use History: Rare Past Drug Use History: None Reported - Past Family History Mother Family Medical History: No Reported History General Exam Limitations: no limitations General appearance: alert, in no apparent distress, anxious Head exam: Present: atraumatic, normocephalic Eye exam: Present: normal appearance, EOMI Neck exam: Present: normal inspection. Absent: meningismus Respiratory exam: Present: normal lung sounds bilaterally. Absent: respiratory distress, wheezes, rales, rhonchi, stridor Cardiovascular Exam: Present: regular rate, normal rhythm, normal heart sounds. Absent: systolic murmur, diastolic murmur, rubs, gallop, clicks GI/Abdominal exam: Present: soft. Absent: distended, tenderness, guarding, rocael ound, rigid Rectal exam: Present: normal inspection, normal rectal tone Neurological exam: Present: alert, oriented X3 Psychiatric exam: Present: normal affect, normal mood Skin exam: Present: normal color Course Vital Signs 01/04/24 01/04/24 01/04/24 18:18 20:36 23:54 Temperature 98.5 F Pulse Rate 102 H 84 85 Respiratory 20 16 17 Rate Blood Pressure 123/66 103/56 109/70 O2 Sat by Pulse 100 100 95 Oximetry Medical Decision Making - Medical Decision Making Was pt. sent in by a medical professional or institution (, PA, WASHROOM CLEANER, urgent care, hospital, or penitentiary...) When possible be specific @ -No Did you speak to anyone other than the patient for history (EMS, parent, family, police, friend...)? What history was obtained from this source @ -No Did you review nursing and triage notes (agree or disagree)? Why? @ -I reviewed and agree with nursing and triage notes Were old charts reviewed (outside hosp., previous admission, EMS record, old EKG, old radiological studies, urgent care reports/EKG's, penitentiary records)? Report findings @ -No old charts were reviewed Differential Diagnosis (chest pain, altered mental status, abdominal pain women, abdominal pain men, vaginal bleeding, weakness, fever, dyspnea, syncope, headache, dizziness, GI bleed, back pain, seizure, CVA, palpatations, mental health, musculoskeletal)? @ -MDM Differential Abdominal Pain Women: Appendicitis, Cholecystitis, diverticulosis, ischemic bowel, pancreatitis, hepatitis, UTI, gastroenteritis, AAA, incarcerated hernia, bowel obstruction, constipation, inflammatory bowel, hepatitis, peptic ulcer disease, splenic infarction, perforated viscus, vulvitis, ovarian torsion, PID, kidney stone, placenta abruption... This is not meant to be an all-inclusive list EKG interpreted by me (3pts min.). @ -As above X-rays interpreted by me (1pt min.). @ -None done CT interpreted by me (1pt min.). @ -CT shows no clear CT abnormality demonstrated to explain the patient's symptoms. Nonspecific appearance of the distal small bowel, mild enteritis may be considered. No evidence of bowel obstruction, free fluid, or free air U/S interpreted by me (1pt. min.). @ -None done What testing was considered but not performed or refused? (CT, X-rays, U/S, labs)? Why? @ -None What meds were considered but not given or refused? Why? @ -None Did you discuss the management of the patient with other professionals (professionals i.e. , PA, WASHRO[employer] CLEANER, lab, RT, psych nurse, oncology social worker, cut in station operator, teacher, promotions officer, case advocate)? Give summary @ -No Was smoking cessation discussed for >3mins.? @ -No Was critical care preformed (if so, how long)? @ -No Were there social determinants of health that impacted care today? How? (Homelessness, low income, unemployed, alcoholism, drug addiction, transportation, low edu. Level, literacy, decrease access to med. care, custodial, rehab)? @ -No Was there de-escalation of care discussed even if they declined (Discuss DNR or withdrawal of care, Hospice)? DNR status @ -No What co-morbidities impacted this encounter? (DM, HTN, Smoking, COPD, CAD, Cancer, CVA, ARF, Chemo, Hep., AIDS, mental health diagnosis, sleep apnea, morbid obesity)? @ -None Was patient admitted / discharged? Hospital course, mention meds given and route, prescriptions, significant lab abnormalities, going to OR and other pertinent info. @ -38-year-old female presenting with chief complaint of abdominal pain. Also admits to bright red blood per rectum. On exam patient has some upper abdominal discomfort on palpation. On rectal exam normal appearance, normal tone. No obvious hemorrhoid or source for bleeding. Lab work shows no leukocytosis or anemia. Remainder of lab work requires no action. CT is obtained which shows no clear abnormality to explain the patient's symptoms. Patient is educated on today's findings. She is requesting discharge home. Educated on the need for colonoscopy. She will follow-up with her PCP as well as GI. Discharged. Follow-up with PCP. Report back to ER with any new or worsening symptoms. Discussed return parameters and answered all questions. Patient conveyed verbal understanding and agreed to the plan. I discussed this case in detail with my attending Dr. Maldonado Undiagnosed new problem with uncertain prognosis? @ -No Drug Therapy requiring intensive monitoring for toxicity (Heparin, Nitro, Insulin, Cardizem)? @ -No Were any procedures done? @ -No Diagnosis/symptom? @ -Abdominal pain Acute, or Chronic, or Acute on Chronic? @ -Acute Uncomplicated (without systemic symptoms) or Complicated (systemic symptoms)? @ -Uncomplicated Side effects of treatment? @ -No Exacerbation, Progression, or Severe Exacerbation? @ -No Poses a threat to life or bodily function? How? (Chest pain, [place], [place], pneumonia, PE, COPD, DKA, ARF, appy, cholecystitis, CVA, Diverticulitis, Homicidal, Suicidal, threat to staff... and all critical care pts) @ -Low likelihood at this time - Lab Data Result diagrams: 01/04/24 19:42 01/04/24 20:17 Lab Results 01/04/24 01/04/24 01/04/24 Range/Units 19:42 19:42 19:42 WBC 6.6 (3.8-10.6) k/uL RBC 5.08 (3.80-5.40) m/uL Hgb 15.5 (11.4-16.0) gm/dL Hct 46.8 H (34.0-46.0) % MCV 92.2 (80.0-100.0) fL MCH 30.5 (25.0-35.0) pg MCHC 33.1 (31.0-37.0) g/dL RDW 12.0 (11.5-15.5) % Plt Count 271 (150-450) k/uL MPV 8.0 Neutrophils % 57 % Lymphocytes % 34 % Monocytes % 5 % Eosinophils % 3 % Basophils % 1 % Neutrophils # 3.8 (1.3-7.7) k/uL Lymphocytes # 2.3 (1.0-4.8) k/uL Monocytes # 0.3 (0-1.0) k/uL Eosinophils # 0.2 (0-0.7) k/uL Basophils # 0.1 (0-0.2) k/uL PT 10.8 (10.0-12.5) sec INR 1.0 (<1.2) APTT 25.4 (22.0-30.0) sec Sodium (137-145) mmol/L Potassium (3.5-5.1) mmol/L Chloride (98-107) mmol/L Carbon Dioxide (22-30) mmol/L Anion Gap mmol/L BUN (7-17) mg/dL Creatinine (0.52-1.04) mg/dL Est GFR (CKD-EPI)AfAm (>60 ml/min/1.73 sqM) Est GFR (CKD-EPI)NonAf (>60 ml/min/1.73 sqM) Glucose (74-99) mg/dL Plasma Lactic Acid El 1.3 (0.7-2.0) mmol/L Calcium (8.4-10.2) mg/dL Total Bilirubin (0.2-1.3) mg/dL AST (14-36) U/L ALT (4-34) U/L Alkaline Phosphatase (38-126) U/L Total Protein (6.3-8.2) g/dL Albumin (3.5-5.0) g/dL Amylase (30-110) U/L Lipase (23-300) U/L Urine Color Urine Appearance (Clear) Urine pH (5.0-8.0) Ur Specific [place] (1.001-1.035) Urine Protein (Negative) Urine Glucose (UA) (Negative) Urine Ketones (Negative) Urine Blood (Negative) Urine Nitrite (Negative) Urine Bilirubin (Negative) Urine Urobilinogen (<2.0) mg/dL Ur Leukocyte Esterase (Negative) Urine HCG, Qual (Not Detectd) 01/04/24 01/04/24 01/04/24 Range/Units 19:42 19:42 20:17 WBC (3.8-10.6) k/uL RBC (3.80-5.40) m/uL Hgb (11.4-16.0) gm/dL Hct (34.0-46.0) % MCV (80.0-100.0) fL MCH (25.0-35.0) pg MCHC (31.0-37.0) g/dL RDW (11.5-15.5) % Plt Count (150-450) k/uL MPV Neutrophils % % Lymphocytes % % Monocytes % % Eosinophils % % Basophils % % Neutrophils # (1.3-7.7) k/uL Lymphocytes # (1.0-4.8) k/uL Monocytes # (0-1.0) k/uL Eosinophils # (0-0.7) k/uL Basophils # (0-0.2) k/uL PT (10.0-12.5) sec INR (<1.2) APTT (22.0-30.0) sec Sodium 137 (137-145) mmol/L Potassium 3.5 (3.5-5.1) mmol/L Chloride 108 H (98-107) mmol/L Carbon Dioxide 22 (22-30) mmol/L Anion Gap 7 mmol/L BUN 14 (7-17) mg/dL Creatinine 0.79 (0.52-1.04) mg/dL Est GFR (CKD-EPI)AfAm >90 (>60 ml/min/1.73 sqM) Est GFR (CKD-EPI)NonAf >90 (>60 ml/min/1.73 sqM) Glucose 78 (74-99) mg/dL Plasma Lactic Acid El (0.7-2.0) mmol/L Calcium 9.1 (8.4-10.2) mg/dL Total Bilirubin 0.6 (0.2-1.3) mg/dL AST 27 (14-36) U/L ALT 19 (4-34) U/L Alkaline Phosphatase 85 (38-126) U/L Total Protein 6.2 L (6.3-8.2) g/dL Albumin 3.9 (3.5-5.0) g/dL Amylase 45 (30-110) U/L Lipase 199 (23-300) U/L Urine Color Colorless Urine Appearance Clear (Clear) Urine pH 6.5 (5.0-8.0) Ur Specific [place] 1.010 (1.001-1.035) Urine Protein Negative (Negative) Urine Glucose (UA) Negative (Negative) Urine Ketones Negative (Negative) Urine Blood Negative (Negative) Urine Nitrite Negative (Negative) Urine Bilirubin Negative (Negative) Urine Urobilinogen <2.0 (<2.0) mg/dL Ur Leukocyte Esterase Negative (Negative) Urine HCG, Qual Not Detected (Not Detectd) Disposition Clinical Impression: Abdominal pain Disposition: HOME SELF-CARE Condition: Good Instructions (If sedation given, give patient instructions): Abdominal Pain (ED) Additional Instructions: Follow-up with PCP and GI. Report back to ER with any new or worsening symptoms. Prescriptions: Sucralfate [Carafate] 1 gm PO BID #20 tablet Pantoprazole Sodium [Protonix] 20 mg PO DAILY #15 tab Is patient prescribed a controlled substance at d/c from ED?: No Referrals: None,Stated [Primary Care Provider] - 1-2 days Toshia Barriga MD [STAFF PHYSICIAN] - 1-2 days Tramaine Schwartz MD [STAFF PHYSICIAN] - 1-2 days Time of Disposition: 23:43
[2024-01-04 19:59] LABS: Basophils # (A) 0.1 k/uL (0-0.2); Basophils % (A) 1 %; Eosinophils # (A) 0.2 k/uL (0-0.7); Eosinophils % (A) 3 %; HCT 46.8 % (34.0-46.0); HGB 15.5 gm/dL (11.4-16.0); Lymphocytes # (A) 2.3 k/uL (1.0-4.8); Lymphocytes % (A) 34 %; MCH 30.5 pg (25.0-35.0); MCHC 33.1 g/dL (31.0-37.0); MCV 92.2 fL (80.0-100.0); Monocytes # (A) 0.3 k/uL (0-1.0); Monocytes % (A) 5 %; Neutrophils # (A) 3.8 k/uL (1.3-7.7); Neutrophils % (A) 57 %; Platelet Count 271 k/uL (150-450); RBC 5.08 m/uL (3.80-5.40); WBC 6.6 k/uL (3.8-10.6)
[2024-01-04 20:01] LABS: Appearance,Urine Clear (Clear); Bilirubin,Urine Negative (Negative); Blood,Urine Negative (Negative); Color,Urine Colorless; Glucose,Urine (UA) Negative (Negative); Ketones,Urine Negative (Negative); Leukocyte Esterase,Urine Negative (Negative); Nitrite,Urine Negative (Negative); PH, Urine 6.5 (5.0-8.0); Protein,Urine Negative (Negative); Urobilinogen,Urine <2.0 mg/dL (<2.0)
[2024-01-04 20:17] LABS: Partial Thromboplastin Time 25.4 sec (22.0-30.0); Prothrombin Time 10.8 sec (10.0-12.5)
[2024-01-04] MEDS: SODIUM CHLORIDE 0.9% 1,000 ML IV STA (20:30)
[2024-01-04] MEDS: KETOROLAC 15 MG/ML 1 ML VIAL IVP STA (20:32)
[2024-01-04] MEDS: ONDANSETRON 4 MG/2 ML VIAL IVP STA (20:34)
[2024-01-04 20:51] LABS: ALT 19 U/L (4-34); AST 27 U/L (14-36); African American GFR (CKD) >90 (>60 ml/min/1.73 sqM); Albumin 3.9 g/dL (3.5-5.0); Alkaline Phosphatase 85 U/L (38-126); Amylase 45 U/L (30-110); Anion Gap 7 mmol/L; Blood Urea Nitrogen 14 mg/dL (7-17); Calcium 9.1 mg/dL (8.4-10.2); Carbon Dioxide 22 mmol/L (22-30); Chloride 108 mmol/L (98-107); Glucose 78 mg/dL (74-99); Lipase 199 U/L (23-300); Non-African American GFR(CKD) >90 (>60 ml/min/1.73 sqM); Potassium 3.5 mmol/L (3.5-5.1); Sodium 137 mmol/L (137-145); Total Bilirubin 0.6 mg/dL (0.2-1.3); Total Protein 6.2 g/dL (6.3-8.2)
--- NOTE | 2024-01-04 23:30 | CT ---
EXAMINATION TYPE: CT abdomen pelvis w con CT DLP: 710.4 mGycm, Automated exposure control for dose reduction was used. DATE OF EXAM: 01/04/2024 7:56 PM COMPARISON: None. CLINICAL INDICATION:Female, 38 years old with history of abdominal pain; Lower to mid abdominal cramp ing for the past week. Dizziness, pain in lower back. Pt states she is having bright red bowel moveme nts. TECHNIQUE: Axial CT of the abdomen and pelvis. Sagittal and coronal reformats were created on a [employer] workstation. Contrast used:100 ml mL of Isovue 300 with IV Contrast, (none if empty) Oral contrast used: without Oral Contrast (none if empty) FINDINGS: Lung bases are clear. Heart size is normal. Liver is unremarkable. Gallbladder is mostly contracted with no calcified stones seen. Nondilated ariel iary tree. Portal veins are enhancing. Splenic vein and SMV are enhancing. Stomach is mildly distended with heterogeneous material, likely food stuffs. Duodenal sweep appears p atent. Scattered loops of fluid-filled small bowel without evidence of obstruction. Ileocecal valve i s unremarkable. No signs of appendicitis. There is moderate stool throughout the colon with several i ntermixed flecks of radiodensity compatible with some sort of ingested material. There continues to b e a moderate amount of colonic stool through the level of the rectum. No free fluid or free air. No lymphadenopathy. Spleen and pancreas appear unremarkable. No mass of the adrenals. Kidneys show normal corticomedullary enhancement without evidence of mass or hydronephrosis. The urin kimberly bladder appears unremarkable. The reproductive organs are limited in assessment by CT, nevertheless the uterus appears slightly het erogeneous and underlying fibroids cannot be excluded. Slight heterogeneous enlargement of the region of the left adnexa could reflect enlarged ovary with hemorrhagic cyst, other etiologies including ne oplasm considered less likely in this age group. Appropriate follow-up should be considered. Trace fr ee pelvic fluid. No free fluid or free air in the abdomen. No acute osseous abnormalities. IMPRESSION: 1. No clear CT abnormality demonstrated to explain the patient's symptoms. 2. Nonspecific appearance of the distal small bowel, mild enteritis may be considered. 3. No evidence of bowel obstruction, free fluid or free air.
[2024-01-04 23:56] VITALS: BP 109/70; PULSE 85; RESP 17
== END 2024-01-04 23:56 | disposition home or self-care (01) ==
LOC: EC 17:57
DX: R10.10 Upper abdominal pain, unspecified (principal)
CPT/HCPCS: 36415; 80053; 82150; 83605; 83690; 85025; 85610; 85730; 81003; 81025; 74177; 99284; 96374; 96375; 96361; J2405; J1885; Q9967

== ENCOUNTER → 2024-05-24 | Outpatient (CLI) | payer BC ==
[2024-05-24 16:28] LABS: T4, Free (Free Thyroxine) 1.27 ng/dL (0.80-1.80); Testosterone 32.5 ng/dL (9.01-47.94)
== END | disposition home or self-care (01) ==
LOC: LABWHC1 08:25
PROVIDERS: ATTEND Nurse Practitioner
CPT/HCPCS: 36415; 82947; 83036; 83525; 84403; 84439; 84443; 84481